=== PATIENT | female | born 1945 | race Caucasian/White ===

== ENCOUNTER 2025-10-24 10:15 | Outpatient (REF) | payer MEDICARE, SELFPAY ==
[2025-10-24 13:45] LABS: Hematocrit 36.6 % (37.0-47.0); Hemoglobin 11.3 g/dl (12.0-16.0); Imm Gran Abs Auto 0.32 X10*3/uL (0.00-0.03); Imm Gran Pct Auto 4.2 % (0.0-0.4); Lymphocytes Absolute Auto 0.4 X10*3/uL (1.2-4.9); MANUAL DIFF FLAG NO; Mean Corpuscular HGB Conc 30.9 g/dl (31.0-35.0); Mean Corpuscular Hemoglobin 31.2 pg (27.0-33.0); Mean Corpuscular Volume 101.1 fL (80.0-98.0); NRBC Abs Auto 0.000 X10*3/uL (0.0-0.012); NRBC Pct Auto 0.0 /100WBC (0.0-0.2); Platelet Count 275 X10*3/uL (160-400); Red Blood Count 3.62 X10*6/uL (4.20-5.50); White Blood Count 7.6 X10*3/uL (4.8-10.8)
--- OUTSIDE RECORDS SUMMARY | 2025-10-24 13:45 | XMS_ITS | Encounter Summary ---
Author Organization [facility] Address [address] [place] [address] Phone Care Team Providers Care Mud Tank Operator Name Role Phone Randal Perkins MD Primary Care Provider [phone] Encounter Details Date Type Department Care Team (Late st Contact Info) Description 02/19/2022 Telephone [facility] [address] [place] [phone] Marisel Richards MD Social History Tobacco Use Types Packs/Day Years Used Date Smoking Tobacco: Never Smokeless Tobacco: Never Alcohol Use Standard Drinks/Week Comments Yes 0 (1 standard drink = 0.6 oz pure alcohol) Alcoholic Drinks/day: Occasional social drink Comments Unknown Sex and Gender Information Value Date Recorded Sex Assigned at Not on file Legal Sex Female 5:16 PM EST Gender Identity Not on file Sexual Orientation Not on file COVID-19 Exposure Response Date Recorded In the last month, have you been in contact with someone who was confirmed or suspected to have Coronavirus / COVID-19? No / Unsure 02/12/2022 5:12 PM EDT documented as of this encounter Functional Status * Question Answer Date of Assessment Author BP 140/68 02/19/2022 4:11 PM EDT Mine Monzon RN Pulse 62 02/19/2022 4:11 PM EDT Mine Monzon RN SpO2 96 02/19/2022 4:11 PM EDT Hoy-K ennedy, Mine, RN * BP Location Answer Date of Assessment Author Left upper arm 02/19/2022 4:11 PM EDT Mine Hawk RN * Question Answer Date of Assessment Author BP 140/68 02/19/2022 4:11 PM EDT Mine Monzon RN * BP Location Answer Date of Assessment Author Left upper arm 02/19/2022 4:11 PM EDT Mine Hawk RN documented as of this encounter Miscellaneous Notes * Telephone Encounter - Shy Waters - 02/19/2022 11:09 AM EDT Pt called, she needs a refill for citric acid-potassium citrate. Please send to [facility] on [facility] Thank you documented in this encounter Plan of Treatment Not on file documented as of this encounter Visit Diagnoses Not on filedocumented in this encounter Care Teams Mud Tank Operator Relationship Specialty Start Date End Date Randal Perkins MD [address] [place], [place] PCP - General 12/09/20 documented as of this encounter
--- OUTSIDE RECORDS SUMMARY | 2025-10-24 13:45 | XMS_ITS | Encounter Summary ---
Author Organization [facility] Address [address] [place] [address] Phone Care Team Providers Care Senior Linux Engineer Name Role Phone Randal Perkins MD Primary Care Provider Encounter Details Date Type Department Care Team (Late st Contact Info) Description 08/16/2024 Telephone [facility] Crohns and Colitis [address] [place] [address] Crow Alberto MD 850 [facility] [address] [place] [address] [email or web address] Social History Tobacco Use Types Packs/Day Years Used Date Smoking Tobacco: Never Smokeless Tobacco: Never Alcohol Use Standard Drinks/Week Comments Yes 2 (1 standard drink = 0.6 oz pur e alcohol) per week Education Answer Date Recorded Are you interested in more education? Not on rose marie e 03/26/2023 Are you concerned about learning? Not on file 03/26/2023 No 03/26/2023 No 03/26/2023 Digital Access Answer Date Recorded No 04/20/2023 No 04/20/2023 No 04/20/2023 Reliable internet access at home? Not on file 04/20/2023 Device with a working camera? Not on file Intimate Partner Violence Answer Date R ecorded Are you denied basic needs s uch as food, clothing, or medical care? No 03/19/2023 In the past 12 months have y ou been in a relationship with a person who hurts, threatens, or tries to control you? No 03/19/2023 Are you denied basic needs s uch as food, clothing, or medical care? No 03/19/2023 In the past 12 months have y ou been in a relationship with a person who hurts, threatens, or tries to control you? No 03/19/2023 Comments Unknown Sex and Gender Information Value Date Recorded Sex Assigned at Female 06/24/2020 12:37 PM EDT Legal Sex Female 6:17 PM EST Gender Identity Female 06/24/2020 12:37 PM EDT Sexual Orientation Not on file Occupation Industry Job Start Date Job End Date Retired Not on file Not on file Not on file documented as of this encounter Plan of Treatment Not on file documented as of this encounter Visit Diagnoses Not on filedocumented in this encounter Additional Health Concerns Assessment Noted Time PHQ-2 Depression Total Score: 1 06/26/20 24 7:29 AM EDT documented as of this encounter Care Teams Senior Linux Engineer Relationship Specialty Start Date End Date Randal Perkins MD [facility] [place] [address] PCP - General 05/29/14 documented as of this encounter Additional Source Comments The information contained in this document represents components of the legal health record. It is not the complete legal health record.[facility]
--- OUTSIDE RECORDS SUMMARY | 2025-10-24 13:45 | XMS_ITS | Clinical Summary ---
Author Organization [facility] Address [address] [facility] [address] [place] [phone] Phone Care Team Providers Care Roll Setter Name Role Phone Benny Akbar MD Primary Care Provider Allergies Active Allergy Reactions Criticality Noted Date Comments Cefazolin Diarrhea 10/27/2018 Metronidazole Rash 12/08/2005 Medications metoprolol succinate (TOPROL-XL) 50 MG 24 hr tablet Take 25 mg by mouth 2 (two) times a day. Active levothyroxine (SYNTHROID, LEVOTHROID) 100 MCG tablet Take 200 mcg by mouth daily. Active cyanocobalamin (VITAMIN B-12) 1,000 mcg/mL injection Inject 1,000 mcg into the muscle every 30 (thirty) days. Active multivit/folic acid/vit K1 (ONE-A-DAY WOMEN'S 50 PLUS ORAL) Take 1 tablet by mouth daily. Active calcium citrate 250 mg calcium Tab Take 100 mg by mouth daily. 8 tabs daily Active estradioL (VAGIFEM) [address] 10 mcg vaginally 2 (two) times a week. Active epoetin crescencio (EPOGEN,PROCRIT) 2,000 unit/mL injection Inject 20 Units/kg under the skin 3 (three) times a week. weekly Active apixaban (ELIQUIS) 2.5 mg Take 2.5 mg by mouth 2 (two) times a day. 2 Active Saccharomyces boulardii (FLORASTOR) 250 mg capsule Take 250 mg by mouth daily. Active atorvastatin (LIPITOR) 20 MG tablet Take 20 mg by mouth daily. Active amiodarone (PACERONE) 200 MG tablet Take 200 mg by mouth daily. Active risankizumab-rzaa (SKYRIZI) 360 mg/2.4 mL (150 mg/mL) subcutaneous on body injectorIndicatio ns:Crohn's disease of both small and large intestine without complication Inject 2.4 mL (360 mg total) under the skin once every 6 weeks. 2.4 mL 5 4 Active cholestyramine (QUESTRAN) 4 gram packet Take 1 packet by mouth daily. Active pyridoxine, vitamin B6, (B-6) 100 MG tablet Take 100 mg by mouth daily. Active torsemide (DEMADEX) 10 MG tablet Take 10 mg by mouth daily. 1-2 tabs as needed Active diphenoxylate-atr opine (LOMOTIL) 2.5-0.025 mg per tablet Take 1 tablet by mouth 4 (four) times a day as needed for diarrhea. Takes TID Active BELATACEPT IV Inject into the vein. Every 2 weeks, then monthly Active predniSONE (DELTASONE) 5 MG tablet Take 5 mg by mouth daily with breakfast. Active atovaquone (MEPRON) 750 mg/5 mL suspension Take 750 mg by mouth daily. Active valGANciclovir (VALCYTE) 450 mg tablet Take 450 mg by mouth daily. Active metoprolol tartrate (LOPRESSOR) 100 MG tablet Take 100 mg by mouth daily. Active Active Problems Problem Noted Date Diagnosed Date Hypertension 08/24/2019 Crohn's disease 08/19/2012 Overview (01/19/2015): Crohn's disease Osteoporosis 01/07/2012 Overview (01/19/2015): Osteoporosis Encounters Date Type Department Care Team Description 10/11/2025 Orders Only [facility] Crohns and Colitis [address] [place] [address] Crow Rojas MD 09/30/2025 Orders Only [facility] [address] [facility] [place] [place] [address] Katty Alan FNP from Last 3 Months Immunizations Immunization Administration Dates Next Due Influenza Quadrivalent Preservative Free IM 08/29 Zoster recombinant 02/27/2019 Family History Medical History Relation Comments Cirrhosis Father Prostate cancer Father Lung cancer Mother Colon cancer Neg Hx Inflammatory bowel disease Neg Hx Relation Status Comments Father Mother Social History Tobacco Use Types Packs/Day Years [...] ecorded Are you denied basic needs s [facility] as food, clothing, or medical care? No [...] file Not on file Not on file Last Filed Vital Signs Vital Sign Reading Time Taken Comments Blood Pressure 177/83 04/19/2023 1:11 PM EDT Pulse 68 04/19/2023 1:11 PM EDT Temperature 36.5 C (97.7 F) 04/19/2023 1:11 PM EDT Respiratory Rate 18 03/19/2023 3:42 PM EDT Oxygen Saturation 98% 04/19/2023 1:11 PM EDT Inhaled Oxygen Concentration - - Weight 52.2 kg (115 lb) 06/19/2024 3:06 PM EDT Height 157.5 cm (5' 2 ) 06/19/2024 3:06 PM EDT Body Mass Index 21.03 06/19/2024 3:06 PM EDT Plan of Treatment Health Maintenance Due Date Last Done Comments LIPID PANEL 1945 TSH LEVEL 1945 COLOGUARD 1992 FIT TEST 1992 FOBT 1992 SIGMOIDOSCOPY 1992 VIRTUAL COLONOSCOPY 1992 OSTEOPOROSIS SCREENING INITIAL (ONE-TIME) 2012 COLONOSCOPY 01/26/2016 01/26/2014, 12/31, 05/28/2010, Additional history exists COLORECTAL CANCER SCREENING 01/26/2016 RSV VACCINE (1 - 1-dose 75+ series) 2022 BLOOD PRESSURE 10/20/2023 04/19/2023 INFLUENZA VACCINE (#1) 2025 , 08/27/2023, 09/11/2022, Additional history exists ALT LEVEL (ALANINE AMINOTRANSFERASE) 07/18/2025 07/18/2024, 06/06/2024, 05/25/2024, Additional history exists CREATININE LEVEL 07/18/2025 07/18/2024, 07/2024, 05/25/2024, Additional history exists COVID-19 VACCINE (2024- season) 2025 09/17/2023, 09/25/2022, 04/06/2022, Additional history exists DEPRESSION SCREENING 01/30/2026 01/30/2025 Adult Td,Tdap Booster 04/30/2032 04/30/2022, 013 HEPATITIS C SCREENING Completed 11/13/2015 ZOSTER VACCINES Completed 08/26/2019, 02/28, 02/27/2019 SMOKING STATUS SCREENING (Once After 26 Yrs) Completed 08/27/2022 PNEUMOCOCCAL VACCINES (50+ years) Completed 05/04/2023 HEPATITIS A VACCINES Aged Out No long er eligible based on patient's age to complete this topic HIB VACCINES Aged Out No longer eligi ble based on patient's age to complete this topic MENINGOCOCCAL VACCINES (ACWY) Aged Out No longer eligible based on patient's age to complete this topic MENINGOCOCCAL VACCINES (B) Aged Out N o longer eligible based on patient's age to complete this topic Medical Devices Not on file Procedures Procedure Name Priority Date/Time Associated Diagnosis Comments COMPREHENSIVE METABOLIC PANEL (CMP) Routine 07/18/2024 1:12 PM EDT Crohn's disease of both small and large intestine without complication Elevated C-reactive protein (CRP) HEPATITIS C ANTIBODY, QUALITATIVE Routine 11/13/2015 11:54 AM EST Crohn's disease, without complications ENDOSCOPY, COLON 01/26/2014 10:2 1 AM EST from Last 3 Months or Most Recently Relevant to Health Maintenance Results * (ABNORMAL) Comprehensive metabolic panel (07/18/2024 1:12 PM EDT) SODIUM 139 133 - 146 mmol/L [facility] POTASSIUM 4.4 3.3 - 5.1 mmol/L [facility] CHLORIDE 96 96 - 108 mmol/L [facility] CO2 22 21 - 35 mmol/L [facility] BUN 54(H) 6 - 19 mg/dL [facility] CREATININE 4.90(H) 0.5 - 1.5 mg/dL [facility] GLUCOSE 103(H) 70 - 99 mg/dL [facility] ALBUMIN 2.7(L) 3.9 - 4.8 g/dL [facility] TOTAL PROTEIN 5.3(L) 6.5 - 8.0 g/dL [facility] CALCIUM 7.4(L) 8.4 - 10.3 mg/dL [facility] ALKALINE PHOSPHATASE 236(H) 39 - 117 U/L [facility] TOTAL BILIRUBIN 0.4 0.0 - 1.2 mg/dL [facility] AST 24 0 - 37 U/L [facility] ALT 19 0 - 40 U/L [facility] GLOBULIN 2.6 1 - 4.8 g/dL [facility] EGFR 9(L) >59 mL/min/1.7 3m2 [facility] Comment:Estimated glomerular filtration rate calculated using the CKD-EPI refit equation. ANION GAP 25(H) 10 - 20 mmol/L [facility] Blood 07/18/2024 1:12 PM EDT 07/18/2024 1:23 PM EDT María Aguayo [facility] LAB BLOOD BKR ORDERABLES Final Result [facility] [address] [place] [address] * Hepatitis C antibody, qualitative ([facility], F, [facility], [facility] Only) (11/13/2015 11:54 AM EST) HCV Negative Negative [facility] 11/13/2015 11:5 4 AM EST 11/13/2015 12:03 PM EST Crow Rojas MD LAB BLOOD BKR ORDERABLES Fi nal Result [facility] [address] [place] [address] * ENDOSCOPY, COLON (01/26/2014 10:21 AM EST) 01/26/2014 10:2 1 AM EST Narrative 02/25/2014 11:31 AM EDT Report Number: [id number] Report Status: Signed Type: Colonoscopy Date: 01/26/2014 10:21 850 Gastroenterology Patient Name: Carline Lee Procedure Date: 01/26/2014 10:21 AM Date of : 1945 Age: 68 Room: 12 Gender: Female Note Status: Finalized Attending MD: CROW ROJAS MD Procedure: Colonoscopy Indications: Personal history of Crohn's disease Providers: CROW ROJAS MD, Olivier Hernandez, FELICITA Referring MD: BENNY AKBAR MD (Referring MD) Requesting Provider: BENNY AKBAR MD Medicines: Midazolam 4 mg IV, Fentanyl 100 micrograms IV Complications: No immediate complications. Procedure: Pre-Anesthesia Assessment: - Prior to the procedure, a History and Physical was performed, and patient medications, allergies and sensitivities were reviewed. The patient's tolerance of previous anesthesia was reviewed. - The risks and benefits of the procedure and the sedation options and risks were discussed with the patient. All questions were answered and informed consent was obtained. - Patient identification and proposed procedure were verified prior to the procedure by the physician and the nurse. The procedure was verified in the pre-procedure area in the procedure room. - Pre-procedure physical examination revealed no contraindications to sedation. - ASA Grade Assessment: II - A patient with mild systemic disease. - After reviewing the risks and benefits, the patient was deemed in satisfactory condition to undergo the procedure. - The anesthesia plan was to use moderate sedation/analgesia (conscious sedation). - Immediately prior to administration of medications, the patient was re-assessed for adequacy to receive sedatives. - Sedation was administered by an endoscopy nurse. The sedation level attained was moderate. - The heart rate, respiratory rate, oxygen saturations, blood pressure, adequacy of pulmonary ventilation, and response to care were monitored throughout the procedure. - The physical status of the patient was re-assessed after the procedure. After informed consent was obtained, the scope was passed under direct vision. Throughout the procedure, the patient's blood pressure, pulse, and oxygen saturations were monitored continuously. The Colonoscope was introduced through the anus and advanced to 10 cm into the ileum. The colonoscopy was performed without difficulty. The patient tolerated the procedure well. The quality of the bowel preparation was good. Findings: The terminal ileum contained a benign-appearing, intrinsic moderate to severe stenosis that was non-traversed. Biopsies were taken with a cold forceps for histology. The colon (entire examined portion) appeared normal. Active inflammation in the ileum sustpected The retroflexed view of the distal rectum and anal verge was normal and showed no anal or rectal abnormalities. Impression: - Stricture in the terminal ileum. Biopsied. - The entire examined colon is normal. - The distal rectum and anal verge are normal on retroflexion view. Recommendation: Discuss additional therapy- ? MRE and ? dilation Crow ROJAS MD 02/25/2014 11:30 AM Number of Addenda: 0 Note Initiated On: 01/26/2014 10:21 AM Procedure Note Crow Rojas MD - 01/26/2014 10:21 AM EST Report Number: [id number] Report Status:Signed Type: Colonoscopy Date: 01/26/2014 10:21 850 Gastroenterology Patient Name: Carline Lee Procedure Date: 01/26/2014 10:21 AM Date of : 1945 Age: 68 Room: 12 Gender: Female Note Status: Finalized Attending MD: RCOW ROJAS MD Procedure: Colonoscopy Indications: Personal history of Crohn's disease Providers: CROW ROJAS MD, Olivier Hernandez RN Referring MD: BENNY AKBAR MD (Referring MD) Requesting Provider: BENNY AKBAR MD Medicines: Midazolam 4 mg IV, Fentanyl 100 micrograms IV Complications: No immediate complications. Procedure: Pre-Anesthesia Assessment: - Prior to the procedure, a History and Physical was performed, and patient medications, allergies and sensitivities were reviewed. The patient's tolerance of previous anesthesia was reviewed. - The risks and benefits of the procedure and the sedation options and risks were discussed with the patient. All questions were answered and informed consent was obtained. - Patient identification and proposed procedure were verified prior to the procedure by the physician and the nurse. The procedure was verified in the pre-procedure area in the procedure room. - Pre-procedure physical examination revealed no contraindications to sedation. - ASA Grade Assessment: II - A patient with mild systemic disease. - After reviewing the risks and benefits, the patient was deemed in satisfactory condition to undergo the procedure. - The anesthesia plan was to use moderate sedation/analgesia (conscious sedation). - Immediately prior to administration of medications, the patient was re-assessed for adequacy to receive sedatives. - Sedation was administered by an endoscopy nurse. The sedation level attained was moderate. - The heart rate, respiratory rate, oxygen saturations, blood pressure, adequacy of pulmonary ventilation, and response to care were monitored throughout the procedure. - The physical status of the patient was re-assessed after the procedure. After informed consent was obtained, the scope was passed under direct vision. Throughout the procedure, the patient's blood pressure, pulse, and oxygen saturations were monitored continuously. The Colonoscope was introduced through the anus and advanced to 10 cm into the ileum. The colonoscopy was performed without difficulty. The patient tolerated the procedure well. The quality of the bowel preparation was good. Findings: The terminal ileum contained a benign-appearing, intrinsic moderate to severe stenosis that was non-traversed. Biopsies were taken with a cold forceps for histology. The colon (entire examined portion) appeared normal. Active inflammation in the ileum sustpected The retroflexed view of the distal rectum and anal verge was normal and showed no anal or rectal abnormalities. Impression: - Stricture in the terminal ileum. Biopsied. - The entire examined colon is normal. - The distal rectum and anal verge are normal on retroflexion view. Recommendation: Discuss additional therapy- ? MRE and ? dilation Crow ROJAS MD 02/25/2014 11:30 AM Number of Addenda: 0 Note Initiated On: 01/26/2014 10:21 AM us Conversion Provider Not In Sys GI PROCEDURE ORDE MINNA Final Result from Last 3 Months or Most Recently Relevant to Health Maintenance Insurance [facility] MEDICARE REPLACEMENT [facility] MEDICARE REPLACEMENT [facility] MEDICARE REPLACEMENT [facility] MEDICARE REPLACEMENT [facility] MEDICARE REPLACEMENT [place] [id number] [facility] MEDICARE REPLACEMENT [place] [id number] [facility] MEDICARE REPLACEMENT [facility] MEDICARE REPLACEMENT [place] [id number] [facility] MEDICARE REPLACEMENT [place] [id number] Care Teams Roll Setter Relationship Specialty Start Date End Date Benny Akbar MD [facility] [address] PCP - General 05/29/14 Additional Source Comments The information contained in this document represents components of the legal health record. It is not the complete legal health record.[facility]
--- OUTSIDE RECORDS SUMMARY | 2025-10-24 13:45 | XMS_ITS | Encounter Summary ---
Author Organization [facility] Address [address] [place] [address] Drive [address] [place] [address] Phone Care Team Providers Care Sort Supervisor Name Role Phone Randal Perkins MD Primary Care Provider Encounter Details Date Type Department Care Team (Late st Contact Info) Description 01/21/2022 Procedure Pass [facility] [address] [place] [address] Social History Tobacco Use Types Packs/Day Years Used Date Smoking Tobacco: Never Smokeless Tobacco: Never Alcohol Use Standard Drinks/Week Comments Yes 2 (1 standard drink = 0.6 oz pur e alcohol) per week Comments Unknown Sex and Gender Information Value [...] filedocumented in this encounter Additional Health Concerns Infection Onset Date Last Indicated Resolved Time CDiff-Risk 05/24/2024 05/25/2024 05/25/2024 12:4 2 PM EDT Assessment Noted Time PHQ-2 Depression Total Score: 0 11/02/20 21 3:22 PM EST documented as of this encounter Care Teams Sort Supervisor Relationship Specialty Start Date End Date Randal Perkins MD [address] [address] PCP - General 05/29/14 documented as of this encounter Additional Source Comments The information contained in this document represents components of the legal health record. It is not the complete legal health record.[facility]
--- OUTSIDE RECORDS SUMMARY | 2025-10-24 13:45 | XMS_ITS | Encounter Summary ---
Author Organization [facility] Address [address] [place] [address] Phone Care Team Providers Care A And P Technician Name Role Phone Randal Perkins MD Primary Care Provider Encounter Details Date Type Department Care Team (Late st Contact Info) Description 08/13/2023 Telephone [facility] Crohns and Colitis [address] [place] [address] Crow Alberto MD 850 [facility] [address] [place] [phone] [email or web address] Social History Tobacco Use Types Packs/Day Years [...] Noted Time PHQ-2 Depression Total Score: 0 07/16/20 23 10:55 AM EDT documented as of this encounter Care Teams A And P Technician Relationship Specialty Start Date End Date Randal Perkins MD [facility] [address] PCP - General 05/29/14 documented as of this encounter Additional Source Comments The information contained in this document represents components of the legal health record. It is not the complete legal health record.[facility]
--- OUTSIDE RECORDS SUMMARY | 2025-10-24 13:46 | XMS_ITS | Encounter Summary ---
Author Organization [facility] [facility] Address [address] [place] [address] Phone Care Team Providers Care Clinical Pharmacy Coordinator Name Role Phone Randal Perkins MD Primary Care Provider Encounter Details Date Type Department Care Team (Late st Contact Info) Description 05/10/2024 Telephone [facility] Crohns and Colitis [address] [place] [address] Crow Alberto MD 850 [facility] [address] [place] [address] [email or web address] Social History Tobacco Use Types Packs/Day Years [...] Noted Time PHQ-2 Depression Total Score: 0 11/06/20 23 8:04 AM EST documented as of this encounter Care Teams Clinical Pharmacy Coordinator Relationship Specialty Start Date End Date Randal Perkins MD [facility] [address] PCP - General 05/29/14 documented as of this encounter Additional Source Comments The information contained in this document represents components of the legal health record. It is not the complete legal health record.[facility]
--- OUTSIDE RECORDS SUMMARY | 2025-10-24 13:46 | XMS_ITS | Clinical Summary ---
Author Organization [address] [place] [address] [place] [phone] Phone Care Team Providers Care Senior Physician Name Role Phone Randal Perkins MD Primary Care Provider [phone] Allergies Active Allergy Reactions Criticality Noted Date Comments Cephalexin Diarrhea,Other 03/19/2021 Metronidazole Other,Rash,Unknown 12/08/2005 Other Reaction(s): Rash/Dermatitis Sulfamethoxazole-Trimetho prim 09/25/2025 Other Reaction(s): WBC count problem Valganciclovir 09/25/2025 Other Reaction(s): WBC count issue Medications metoprolol succinate (TOPROL-XL) 100 mg 24 hr tablet TAKE 1 TABLET BY MOUTH EVERY DAY 90 tablet 3 5 Active Eliquis 2.5 mg tablet Take 1 tablet (2.5 mg total) by mouth 2 (two) times a day. Active belatacept (Nulojix) 250 mg recon soln Infuse 5mg/kg q 28 days ; Pt weight as of 07/05/25 53kg 5 Active calcium carbonate (OS-BEKAH) 1250 mg (500 mg elemental calcium) chewable tablet CHEW 2 TABLETS 3 TIMES DAILY 5 Active Cholestyramine Light 4 gram packet TAKE 1 PACKET (4 G TOTAL) BY MOUTH IN THE MORNING AND 1 PACKET (4 G TOTAL) IN THE EVENING. Active docusate sodium (COLACE) 100 mg capsule Take 1 capsule (100 mg total) by mouth 1 (one) time each day. 4 Active hydroCHLOROthi azide (HYDRODIURIL) 25 mg tablet Take 1 tablet (25 mg total) by mouth 1 (one) time each day. 5 07/17/20 26 Active amoxicillin (AMOXIL) 500 mg capsule Take by mouth. Acti ve predniSONE (DELTASONE) 5 mg tablet Take 1 tablet (5 mg total) by mouth 1 (one) time each day. Active torsemide (DEMADEX) 5 mg tablet Take 1 tablet (5 mg total) by mouth 1 (one) time each day. Active vitamin A 3,000 mcg (10,000 unit) capsule Take 1 capsule (10,000 Units total) by mouth 1 (one) time each day. Active levothyroxine (SYNTHROID, LEVOTHROID) 200 mcg tablet Take 1 tablet (200 mcg total) by mouth 1 (one) time each day before breakfast. Active levothyroxine (SYNTHROID, LEVOTHROID) 50 mcg tablet Take 1 tablet (50 mcg total) by mouth every other day. Active cholecalcifero l (VITAMIN D-3) 1,250 mcg (50,000 unit) capsule Take 1 capsule (50,000 Units total) by mouth 1 (one) time per week. Active fluticasone propionate (FLONASE) 50 mcg/actuation nasal spray Administer 1 spray into each nostril 1 (one) time each day. Shake gently. Before first use, prime pump. After use, clean tip and replace cap. Active levothyroxine (SYNTHROID, LEVOTHROID) 50 mcg tablet Take 1 tablet (50 mcg total) by mouth 1 (one) time each day before breakfast. 09/25/20 25 Discontinu ed(Formula ry change) Active Problems Problem Noted Date Diagnosed Date SOB (shortness of breath) 09/25/2025 Assessment & Plan (09/25/2025 3:30 PM EDT): This appears to be multifactorial, definitely component of this is deconditioning, could be slight fluid overload. Patient feels much better since she was discharged has lost about 2 pounds of fluid, she is back on her regular dose of the torsemide 5 mg p.o. daily. I am going to look into ordering cardiac rehab for her at her request. Factor V deficiency (CMS/HCC V24, CMS/HCC V28) 1 HFrEF (heart failure with re duced ejection fraction) ([facility] V24, CMS/[facility] V28) 09/25/2025 Overview (09/25/2025): echocardiogram on 06/26/2025 that revealed left ventricle cavity is mildly dilated. Mild concentric left ventricular hypertrophy. There is mild global LV systolic dysfunction with an ejection fraction of 45-50%. Mitral valve leaflets are mildly thickened and apically tented. There is moderate mitral regurgitation. There is systolic flow reversal in 1 pulmonary vein visualized indicating possibly more severe degree of mitral regurgitation. There is no mitral stenosis. There is grade 3 diastolic dysfunction. Consistent with elevated left atrial pressures. RV systolic pressure is 43 mmHg. Compared to prior echo in 01/2024 there is no significant difference Assessment & Plan (09/25/2025 3:29 PM EDT): Utilizing metoprolol succinate 100 mg p.o. daily in addition to torsemide 5 mg p.o. daily. We are limited in GDMT secondary to kidney disease. Patient is going to be scheduled with her software engineering supervisor to have a kidney biopsy in which case afterward they are considering initiating an SCOTT or ARB which would be beneficial for the patient's heart failure. Entresto would be the best for her heart failure if she was able to tolerate that. I would like her to continue to check her weights daily, reach out if she gains more than 2 pounds in a day or 4 pounds in a week. She should limit sodium consumption to 2000 mg p.o. daily. She reports that she is down about 2 pounds since she was discharged from the hospital and feels much better. She also is inquiring about cardiac rehab I will look into that today. Renal transplant recipient 09/25/2025 Hyperthyroidism 09/25/2025 Paroxysmal atrial fibrillation ([facility] V24, [facility] V28) 09/25/2025 Overview (09/25/2025): s/p ablation with Dr Mendosa in February 2024, and cardioversion. Complicated by pericarditis-since resolved. Assessment & Plan (09/25/2025 3:27 PM EDT): Utilizing reduced dose Eliquis, she had significant bleeding when she was on the regular dose of Eliquis, she also has history of factor V Leiden disease. Should continue on the Eliquis for CVA prophylaxis. Patient likely has not been in atrial fibrillation since her ablation and cardioversion. She has subjective awareness of her A-fib. Utilizing metoprolol for rate control. Should remain anticoagulated due to elevated CHADS2 VASc score Primary hypertension 09/25/2025 Assessment & Plan (09/25/2025 3:31 PM EDT): She has noticed elevated blood pressures over the past couple weeks however it has been better controlled recently. We did discuss switching from the metoprolol to carvedilol which would give her better blood pressure control, however she has subjective awareness of her heart rate when it starts to go above 90 bpm. For now we are going to stay on the metoprolol, patient does have plan for kidney biopsy and potential to go back on SCOTT ARB or Arni depending on those results which would also help her blood pressure and heart failure. Encounters Date Type Department Care Team Description 09/25/2025 1:40 PM EDT Office Visit [facility] Cardiology [facility] [address] [facility] [address] [place] [address] Michele Malagon NP Renal transplant recipient (Primary Dx); SOB (shortness of breath); HFrEF (heart failure with reduced ejection fraction) (CMS/HCC V24, CMS/HCC V28); Paroxysmal atrial fibrillation (CMS/HCC V24, CMS/HCC V28); Primary hypertension 09/25/2025 Telephone [facility] Cardiology [facility] [address] [facility] [address] [place] [address] Michele Malagon NP 09/20/2025 Telephone [facility] Cardiology [facility] [address] [facility] [address] [place] [address] Kamille Shetty MD from Last 3 Months Immunizations Immunization Administration Dates Next Due Pfizer SARS-CoV-2 COVID-19, mRNA, LNP-S, preservative free 08/19/2021,01/20/2021,12/30/2020 Surgical History Surgery Date Site/Laterality Comments SECTION PROCEDURE: HISTORICAL DELIVERY CHOLECYSTECTOMY PROCEDURE: HISTORICAL CHOLECYSTECTOMY OTHER SURGICAL HISTORY 12/07/2016 PROCEDURE: HISTORICAL SUBTOTAL THYROIDECTOMY COLONOSCOPY PROCEDURE: HISTORICAL COLONOSCOPY; COMMENT: 10/14/12, 05/28/10, 07/31/02 Medical History Medical History Date Comments JUAN JOSE (acute kidney injury) (CMS/HCC V24) DX:JUAN JOSE (acute kidney injury) (HCC) Breast cancer (CMS/HCC V24, CMS/HCC V28) DX:Breast cancer (HCC) H/O section DX:H/O cesa rean section Chronic renal impairment 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 Crohn's disease (CMS/HCC V24, CMS/HCC V28) DX:Crohn's disease (HCC) Factor V deficiency (CMS/HCC V24, CMS/HCC V28) DX:Factor V deficiency (HCC) Multiple thyroid nodules DX:Mult iple thyroid nodules Osteoporosis DX:Osteoporosis Steatosis of liver DX:Steatosis of liver Cystitis DX:Cystitis Vitamin B12 deficiency DX:Vitami n B12 deficiency Anemia DX:Anemia Hypothyroidism DX:Hypothyroidis m Erythema nodosum DX:Erythema nod osum Recurrent cystitis DX:Recurrent cystitis Nephrolithiasis DX:Nephrolithias is; COMMENT: DAMAGED LEFT KIDNEY CALCIUM OXALATE STONE Hypertension Family History Medical History Relation Name Comments Cirrhosis Father Lung cancer Mother Other: pulmonary embolism Son Relation Name Status Comments Father Mother Son Alive Social History Tobacco Use Types Packs/Day Years Used Date Smoking Tobacco: Never Alcohol Use Standard Drinks/Week Comments Never 0 (1 standard drink = 0.6 oz pur e alcohol) Comments Unknown Sex and Gender Information Value Date Recorded Sex Assigned at Not on file Legal Sex Female 7:08 PM EST Gender Identity Not on file Sexual Orientation Not on file Obstetrics History Last Filed Vital Signs Vital Sign Reading Time Taken Comments Blood Pressure 140/60 09/25/2025 1:24 PM EDT Pulse 80 09/25/2025 1:24 PM EDT Temperature - - Respiratory Rate - - Oxygen Saturation 97% 09/25/2025 1:24 PM EDT Inhaled Oxygen Concentration - - Weight 53.5 kg (118 lb) 09/25/2025 1:24 PM EDT Height 157.5 cm (5' 2 ) 09/25/2025 1:24 PM EDT Body Mass Index 21.58 09/25/2025 1:24 PM EDT Plan of Treatment Health Maintenance Due Date Last Done Comments Diabetes: Annual Foot Exam 1957 Diabetes: Annual Retina Eye Exam 1955 Hepatitis A Vaccines (1 of 2 - Risk 2-dose series) 1966 Hepatitis B Vaccines (1 of 3 - Risk 3-dose series) 2007 RSV Immunization Adult Patients (1 - 1-dose 75+ series) 2022 Falls Risk Assessment 11/08/2022 Medicare Annual Wellness Visit 11/08/2022 Osteoporosis Screening (Bone Density Screening) 11/08/2022 Social Influencers of Health Screening 11/08/2022 Depression Screening 11/29/2024 Diabetes: Annual GFR (Glomerular Filtration Rate) 07/18/2025 07/18/2024, 06/06/2024, 05/25/2024, Additional history exists Hypertension/CHF/CAD Annual BMP Blood Test 07/18/2025 07/18/2024, 06/06/2024, 05/25/2024, Additional history exists COVID-19 Vaccine (2024- season) 2025 09/17/2023, 09/25/2022, 04/06/2022, Additional history exists Diabetes: Blood Sugar Control Test (HGBA1C) 03/14/2026 09/13/2025, 09/13/2025, 08/10/2025, Additional history exists Diabetes: Annual Urine Albumin-Creatinine Ratio (uACR) 09/13/2026 09/13/2025, 08/10/2025, 06/05/2025, Additional history exists Cholesterol Screening (Lipid Panel) 09/13/2030 09/13/2025, 04/20/2025 DTaP,Tdap,and Td Vaccines (4 - Td or Tdap) 04/30/2032 04/30/2022, 04/18/2013, 03/29/2005 Hepatitis C Screening Completed 11/13/2015 Zoster Vaccines Completed 08/26/2019, 02/28, 02/27/2019, Additional history exists Pneumococcal Vaccine: 50+ Years Completed 05/04/2023, 07/12/2015, 05/29/2015, Additional history exists Influenza Vaccine Completed 09/19/2025, , 08/27/2023, Additional history exists HIB Vaccines Aged Out No longer eligi ble based on patient's age to complete this topic HPV Vaccines Aged Out No longer eligi ble based on patient's age to complete this topic IPV Vaccines Aged Out No longer eligi ble based on patient's age to complete this topic MMR Vaccines Aged Out No longer eligi ble based on patient's age to complete this topic Meningococcal ACWY Vaccine Aged Out N o longer eligible based on patient's age to complete this topic Meningococcal B Vaccine Aged Out No l onger eligible based on patient's age to complete this topic RSV Immunization Patients Under 20 months Aged Out No longer eligible based on patient's age to complete this topic Varicella Vaccines Aged Out No longer eligible based on patient's age to complete this topic Insurance [employer] MEDICARE Care Teams Senior Physician Relationship Specialty Start Date End Date Randal Perkins MD [facility] [place] [address] PCP - General Internal Medicine 07/07/22
--- OUTSIDE RECORDS SUMMARY | 2025-10-24 13:46 | XMS_ITS | Encounter Summary ---
Author Organization [employer] [facility] Address [address] [place] [address] Phone Care Team Providers Care Sprayer Machine Name Role Phone Randal Perkins MD Primary Care Provider Encounter Details Date Type Department Care Team (Late st Contact Info) Description 05/26/2024 Procedure Pass [facility] [address] [place] [address] Social History Tobacco Use Types Packs/Day Years [...] Noted Time PHQ-2 Depression Total Score: 1 05/20/20 24 3:34 PM EDT documented as of this encounter Care Teams Sprayer Machine Relationship Specialty Start Date End Date Randal Perkins MD [address] [address] PCP - General 05/29/14 documented as of this encounter Additional Source Comments The information contained in this document represents components of the legal health record. It is not the complete legal health record.[facility]
--- OUTSIDE RECORDS SUMMARY | 2025-10-24 13:46 | XMS_ITS | Encounter Summary ---
Author Organization [facility] Address [address] [place] [address] Phone Care Team Providers Care Junior Accountant Bookkeeper Name Role Phone Randal Perkins MD Primary Care Provider Encounter Details Date Type Department Care Team (Late st Contact Info) Description 09/18/2020 Procedure Pass [facility] [address] [place] [address] Social History Tobacco Use Types Packs/Day Years [...] 05/24/2024 05/25/2024 05/25/2024 12:4 2 PM EDT documented as of this encounter Care Teams Junior Accountant Bookkeeper Relationship Specialty Start Date End Date Randal Perkins MD [address] [address] PCP - General 05/29/14 documented as of this encounter Additional Source Comments The information contained in this document represents components of the legal health record. It is not the complete legal health record.[facility]
--- OUTSIDE RECORDS SUMMARY | 2025-10-24 13:46 | XMS_ITS | Encounter Summary ---
Author Organization [facility] Address [address] [place] [address] Phone Care Team Providers Care Wall Attendant Name Role Phone Randal Perkins MD Primary Care Provider Encounter Details Date Type Department Care Team (Late st Contact Info) Description 05/12/2024 Telephone [facility] Crohns and Colitis [address] [place] [address] Crow Alberto MD [address] [facility] [address] [place] [phone] [email or web address] Social History Tobacco Use Types Packs/Day [...] documented as of this encounter Care Teams Wall Attendant Relationship Specialty Start Date End Date Randal Perkins MD [facility] [address] PCP - General 05/29/14 documented as of this encounter Additional Source Comments The information contained in this document represents components of the legal health record. It is not the complete legal health record.[facility]
--- OUTSIDE RECORDS SUMMARY | 2025-10-24 13:46 | XMS_ITS | Encounter Summary ---
Author Organization [facility], Address [address] [place] [address] Phone Care Team Providers Care Tank Furnace Operator Name Role Phone Randal Perkins MD Primary Care Provider [phone] Encounter Details Date Type Department Care Team (Late st Contact Info) Description 07/12/2025 Documentation Only [facility], [address] [place] [address] Bonnie Ojeda [address] [place] [address] Social History Tobacco Use Types Packs/Day Years Used Date Smoking Tobacco: Never Smokeless Tobacco: Never Alcohol Use Standard Drinks/Week Comments Not Currently 0 (1 standard drink = 0.6 oz pure alcohol) Alcoholic Drinks/day: Occasional social drink Comments Unknown Sex and Gender Information Value Date Recorded Sex Assigned at Not on file Legal Sex Female 5:16 PM EST Gender Identity Not on file Sexual Orientation Not on file documented as of this encounter Plan of Treatment Not on file documented as of this encounter Visit Diagnoses Not on filedocumented in this encounter Care Teams Tank Furnace Operator Relationship Specialty Start Date End Date Randal Perkins MD [address] [facility] MEDIC[facility] [place], [place] PCP - General 12/09/20 documented as of this encounter
--- OUTSIDE RECORDS SUMMARY | 2025-10-24 13:46 | XMS_ITS | Encounter Summary ---
Author Organization [facility] Address [address] [place] [address] Phone Care Team Providers Care Transport Engineer Name Role Phone Randal Perkins MD Primary Care Provider [phone] Reason for Visit * Reason Comments Med Refill Encounter Details Date Type Department Care Team (Late st Contact Info) Description 03/25/2023 Refill [facility] [address] [place] [phone] Garo Bautista MD [address] [place] [address] Social History Tobacco Use Types Packs/Day Years [...] on filedocumented in this encounter Care Teams Transport Engineer Relationship Specialty Start Date End Date Randal Perkins MD [address] [facility] [place], [place] PCP - General 12/09/20 documented as of this encounter
--- OUTSIDE RECORDS SUMMARY | 2025-10-24 13:46 | XMS_ITS | Encounter Summary ---
Author Organization [employer] [facility] Address [address] [place] [address] Phone Care Team Providers Care Enterprise Applications Manager Name Role Phone Randal Perkins MD Primary Care Provider Encounter Details Date Type Department Care Team (Late st Contact Info) Description 07/14/2024 Telephone [facility] Crohns and Colitis [address] [place] [address] Crow Alberto MD [address] [facility] [address] [place] [address] [email or web address] Social History Tobacco Use Types Packs/Day Years [...] documented as of this encounter Care Teams Enterprise Applications Manager Relationship Specialty Start Date End Date Randal Perkins MD [facility] [place] [address] PCP - General 05/29/14 documented as of this encounter Additional Source Comments The information contained in this document represents components of the legal health record. It is not the complete legal health record.[facility]
--- OUTSIDE RECORDS SUMMARY | 2025-10-24 13:46 | XMS_ITS | Encounter Summary ---
Author Organization [facility], Address [address] [place] [address] Phone Care Team Providers Care Computer Lab Assistant Name Role Phone Randal Perkins MD Primary Care Provider [phone] Encounter Details Date Type Department Care Team (Late st Contact Info) Description 07/28/2025 Orders Only [facility], [address] [place] [phone] Sonido Davila MD [address] [facility] [address] [place] [phone] Social History Tobacco Use Types Packs/Day Years [...] on filedocumented in this encounter Care Teams Computer Lab Assistant Relationship Specialty Start Date End Date Randal Perkins MD [address] [facility] MEDICINE [place], [place] PCP - General 12/09/20 documented as of this encounter
--- OUTSIDE RECORDS SUMMARY | 2025-10-24 13:46 | XMS_ITS | Encounter Summary ---
Author Organization [facility] Address [address] [place] [address] Phone Care Team Providers Care Manager Track Name Role Phone Randal Perkins MD Primary Care Provider [phone] Reason for Visit * Reason Comments Med Refill Encounter Details Date Type Department Care Team (Late st Contact Info) Description 04/10/2023 Refill [facility] [address] [place] [phone] Garo Bautista MD [address] [place] [address] Social History Tobacco Use Types Packs/Day Years [...] on filedocumented in this encounter Care Teams Manager Track Relationship Specialty Start Date End Date Randal Perkins MD [address] [facility] MEDICINE [place], [place] PCP - General 12/09/20 documented as of this encounter
--- OUTSIDE RECORDS SUMMARY | 2025-10-24 13:47 | XMS_ITS | Encounter Summary ---
Author Organization [facility] Address [address] [place] [address] [address] [place] [address] Phone Care Team Providers Care Nutrition Partner Name Role Phone Randal Perkins MD Primary Care Provider Encounter Details Date Type Department Care Team (Late st Contact Info) Description 06/10/2022 Procedure Pass [facility] [address] [place] [address] Social History Tobacco Use Types Packs/Day Years [...] documented as of this encounter Care Teams Nutrition Partner Relationship Specialty Start Date End Date Randal Perkins MD [address] [address] PCP - General 05/29/14 documented as of this encounter Additional Source Comments The information contained in this document represents components of the legal health record. It is not the complete legal health record.[facility]
--- OUTSIDE RECORDS SUMMARY | 2025-10-24 13:47 | XMS_ITS | Encounter Summary ---
Author Organization [facility] Address [address] [place] [address] Phone Care Team Providers Care Editorial Clerk Name Role Phone Randal Perkins MD Primary Care Provider [phone] Encounter Details Date Type Department Care Team (Late st Contact Info) Description 03/19/2021 Orders Only [facility] [address] [place] [phone] Provider, MD Vikas Social History Tobacco Use Types Packs/Day Years [...] have Coronavirus / COVID-19? No / Unsure 03/19/2021 1:20 PM EDT documented as of this encounter Functional Status * Question Answer Date of Assessment Author BP 148/70 03/19/2021 1:31 PM EDT Shikha Candelaria MA Pulse 69 03/19/2021 1:31 PM EDT Shikha Candelaria MA SpO2 98 03/19/2021 1:31 PM EDT Shikha Candelaria MA Height 63 03/19/2021 1:31 PM EDT Shikha Candelaria MA Weight 211103/19/2021 1:31 PM EDT Shikha Candelaria MA * BMI (Calculated) Answer Date of Assessment Author 23.4 03/19/2021 1:31 PM EDT César Candelaria MA * BP Location Answer Date of Assessment Author Left upper arm 03/19/2021 1:31 PM EDT César Candelaria MA * Question Answer Date of Assessment Author BP 148/70 03/19/2021 1:31 PM EDT Shikha Candelaria MA Height 63 03/19/2021 1:31 PM EDT Shikha Candelaria MA Weight 211103/19/2021 1:31 PM EDT Shikha Candelaria MA * BMI (Calculated) Answer Date of Assessment Author 23.4 03/19/2021 1:31 PM EDT César Candelaria MA * BP Location Answer Date of Assessment Author Left upper arm 03/19/2021 1:31 PM EDT César Candelaria MA documented as of this encounter Plan of Treatment Not on file documented as of this encounter Procedures Procedure Name Priority Date/Time Associated Diagnosis Comments EXT RESULT ENTRY Routine 02/19/2021 documented in this encounter Results * EXT RESULT ENTRY (02/19/2021) us Historical Provider LAB BLOOD ORDERABLES Veronica l Result documented in this encounter Visit Diagnoses Not on filedocumented in this encounter Care Teams Editorial Clerk Relationship Specialty Start Date End Date Randal Perkins MD [address] [place] [address] PCP - General 12/09/20 documented as of this encounter
--- OUTSIDE RECORDS SUMMARY | 2025-10-24 13:47 | XMS_ITS | Encounter Summary ---
Author Organization [facility] Address [address] [place] [address] Phone Care Team Providers Care Metal Roofing Mechanic Name Role Phone Randal Perkins MD Primary Care Provider + [phone] Encounter Details Date Type Department Care Team (Late st Contact Info) Description 04/02/2021 Orders Only [facility] [address] [place] [phone] Marisel Richards MD Stage 3a chronic kidney disease (HCC); Renal stone; Stenosis of left renal artery (HCC); Hypokalemia with normal acid-base balance; Hypertension; Crohn's disease of small intestine without complication, not otherwise specified (HCC) Social History Tobacco Use Types Packs/Day Years [...] PM EDT documented as of this encounter Plan of Treatment Not on file documented as of this encounter Procedures Procedure Name Priority Date/Time Associated Diagnosis Comments US RETROPERITONEUM KIDNEY VESSELS Routine 07/07/2021 2:34 PM EDT Stage 3a chronic kidney disease (HCC) Renal stone Stenosis of left renal artery (HCC) Hypokalemia with normal acid-base balance Hypertension Crohn's disease of small intestine without complication, not otherwise specified (HCC) documented in this encounter Results * Renal Artery Duplex (07/07/2021 2:34 PM EDT) Anatomical Region Laterality Modality Body Ultrasound us Marisel Richards MD [facility]EDURES Final Result documented in this encounter Visit Diagnoses Diagnosis Stage 3a chronic kidney disease (HCC) Renal stone Stenosis of left renal artery (HCC) Hypokalemia with normal acid-base balance Hypertension Crohn's disease of small intestine without complication, not otherwise specified (HCC) documented in this encounter Care Teams Metal Roofing Mechanic Relationship Specialty Start Date End Date Randal Perkins MD [address] [place], [place] PCP - General 12/09/20 documented as of this encounter
--- OUTSIDE RECORDS SUMMARY | 2025-10-24 13:47 | XMS_ITS | Encounter Summary ---
Author Organization [facility] Address [address] [place] [address] Phone Care Team Providers Care Filling Machine Set Up Mechanic Name Role Phone Randal Perkins MD Primary Care Provider + [phone] Encounter Details Date Type Department Care Team (Late st Contact Info) Description 05/19/2021 Orders Only [facility] [address] [place] [phone] Marisel Richards MD Disorder of calcium metabolism, not otherwise specified Social History Tobacco Use Types Packs/Day Years [...] Procedure Name Priority Date/Time Associated Diagnosis Comments CALCIUM, IONIZED Routine 05/19/2021 9:41 AM EDT Disorder of calcium metabolism, not otherwise specified documented in this encounter Results * Calcium, ionized (05/19/2021 9:41 AM EDT) Calcium Ionized pH 1.17 (1.13-1.32) MMOL/L [facility] Comment: Testing performed or reported by [facility], a Service of [facility], [address] [place] [id number] Angeline Perez MD, Elevator Pilot Blood specimen (specimen) Venous blood / Unknown 05/19/2021 9:41 AM EDT 05/19/2021 9:42 AM EDT us Marisel Richards MD LAB BLOOD ORDERABLES Final Resu lt Performing Organization Address City/State/ZIP Co wi Phone Number [facility] documented in this encounter Visit Diagnoses Diagnosis Disorder of calcium metabolism, not otherwise specified documented in this encounter Care Teams Filling Machine Set Up Mechanic Relationship Specialty Start Date End Date Randal Perkins MD [address] [place], [place] PCP - General 12/09/20 documented as of this encounter
--- OUTSIDE RECORDS SUMMARY | 2025-10-24 13:47 | XMS_ITS | Encounter Summary ---
Author Organization [facility], Address [address] [place] [address] Phone Care Team Providers Care Slitter Scorer Name Role Phone Randal Perkins MD Primary Care Provider [phone] Encounter Details Date Type Department Care Team (Late st Contact Info) Description 06/27/2025 Orders Only [facility], [address] [place] [phone] Dee Muniz, RN [address] [place] [address] Social History Tobacco Use Types Packs/Day Years [...] on filedocumented in this encounter Care Teams Slitter Scorer Relationship Specialty Start Date End Date Randal Perkins MD [address] [facility] [place], [place] PCP - General 12/09/20 documented as of this encounter
--- OUTSIDE RECORDS SUMMARY | 2025-10-24 13:47 | XMS_ITS | Encounter Summary ---
Author Organization [facility], Address [address] [place] [address] Phone Care Team Providers Care Epic Beacon Analyst Name Role Phone Randal Perkins MD Primary Care Provider [phone] Reason for Visit * Reason Onset Date Comments PCM f/u 10/05/2025 Encounter Details Date Type Department Care Team (Late st Contact Info) Description 10/05/2025 Telephone [facility] [address] [place] [phone] Trista Feliz, RN [address] [place] [phone] Social History Tobacco Use Types Packs/Day Years [...] on filedocumented in this encounter Care Teams Epic Beacon Analyst Relationship Specialty Start Date End Date Randal Perkins MD [address] [place], [place] PCP - General 12/09/20 documented as of this encounter
--- OUTSIDE RECORDS SUMMARY | 2025-10-24 13:47 | XMS_ITS | Encounter Summary ---
Author Organization [facility], Address [address] [place] [address] Phone Care Team Providers Care Mysql Database Developer Name Role Phone Randal Perkins MD Primary Care Provider [phone] Encounter Details Date Type Department Care Team (Late st Contact Info) Description 10/23/2025 Orders Only [facility], [address] [place] [address] [place], [place] [address] [place] [address] Social History Tobacco Use Types [...] on filedocumented in this encounter Care Teams Mysql Database Developer Relationship Specialty Start Date End Date Randal Perkins MD [address] [facility] [place], [place] PCP - General 12/09/20 documented as of this encounter
--- OUTSIDE RECORDS SUMMARY | 2025-10-24 13:47 | XMS_ITS | Encounter Summary ---
Author Organization [facility] Address [address] [place] [address] [place] [address] Phone Care Team Providers Care Gasket Notcher Name Role Phone Randal Perkins MD Primary Care Provider Reason for Referral * MRI/CAT Scan - Closed Specialty Diagnoses / Procedures Referred By Ariel sales Referred To Contact Procedures CT Abdomen/Pelvis Outside (No Interpretation) Crow Alberto MD Phone: tel: fax: mailto:[email or web address] Referral ID Status Reason Start Date Expiration Date Visits Re quested Visits Authorized [id number] Closed 11/30/2017 11/30/2018 1 1 Encounter Details Date Type Department Care Team (Late st Contact Info) Description 11/30/2017 Transcribe Orders [facility] [address] [place] [address] Katia Silvestre [address] [place] [phone] [email or web address] Social History Tobacco Use Types Packs/Day Years Used Date Smoking Tobacco: Never Comments Unknown Sex and Gender Information Value Date Recorded Sex Assigned at Female 06/24/2020 12:37 PM EDT Legal Sex Female 6:17 PM EST Gender Identity Female 06/24/2020 12:37 PM EDT Sexual Orientation Not on file documented as of this encounter Plan of Treatment Not on file documented as of this encounter Results * CT Abdomen/Pelvis Outside (No Interpretation) (11/30/2017 12:00 AM EST) Narrative SYSTEMGENERATED, DOCUMENTATION - 11/30/2017 11:10 AM EST This study is for PACS storage only and not for interpretation. us Crow Alberto MD IMG OUTSIDE IMAGING W/OUT I NTERPRETATION Final Result documented in this encounter Visit Diagnoses Not on filedocumented in this encounter Additional Health Concerns Infection Onset Date Last Indicated Resolved Time CDiff-Risk 05/24/2024 05/25/2024 05/25/2024 12:4 2 PM EDT documented as of this encounter Care Teams Gasket Notcher Relationship Specialty Start Date End Date Randal Perkins MD [facility] [address] PCP - General 05/29/14 documented as of this encounter Additional Source Comments The information contained in this document represents components of the legal health record. It is not the complete legal health record.[facility]
--- OUTSIDE RECORDS SUMMARY | 2025-10-24 13:47 | XMS_ITS | Encounter Summary ---
Author Organization [facility] Address [address] [facility] [place] [address] Phone Care Team Providers Care Swimming Coach Name Role Phone Randal Perkins MD Primary Care Provider Encounter Details Date Type Department Care Team (Late st Contact Info) Description 06/28/2019 Procedure Pass [facility] [address] [place] [address] Social History Tobacco Use Types Packs/Day Years [...] documented as of this encounter Care Teams Swimming Coach Relationship Specialty Start Date End Date Randal Perkins MD [address] [address] PCP - General 05/29/14 documented as of this encounter Additional Source Comments The information contained in this document represents components of the legal health record. It is not the complete legal health record.[facility]
--- OUTSIDE RECORDS SUMMARY | 2025-10-24 13:47 | XMS_ITS | Encounter Summary ---
Author Organization [facility] Address [address] [place] [address] Care Team Providers Care Buttermaker Helper Name Role Phone System, Provider Not In Primary Care Provider Un available Rodrigo Perkins MD Primary Care Provider + [phone] Rodrigo Perkins MD Primary Care Provider + [phone] Encounter Details Date Type Department Care Team (Late st Contact Info) Description 07/19/2023 Scanned Document [facility] [address] [facility] [address] [place] [phone] Provider, External, [address] [place] [address] Social History Tobacco Use Types Packs/Day Years Used Date Smoking Tobacco: Never Assessed Comments Unknown Sex and Gender Information Value Date Recorded Sex Assigned at Female 05/23/2025 10:48 AM EDT Legal Sex Female 11:09 AM EDT Gender Identity Female 05/23/2025 10:48 AM EDT Sexual Orientation Heterosexual (straight) 05/23 10:48 AM EDT documented as of this encounter Plan of Treatment Not on file documented as of this encounter Visit Diagnoses Not on filedocumented in this encounter Care Teams Buttermaker Helper Relationship Specialty Start Date End Date System, Provider Not In PCP - General 05/23/25 05/23/25 Rodrigo Perkins MD [address] [place] [address] PCP - General Internal Medicine 04/29/25 05/22/25 Rodrigo Perkins MD [address] [place] [address] PCP - General Internal Medicine 08/29/25 documented as of this encounter
--- OUTSIDE RECORDS SUMMARY | 2025-10-24 13:47 | XMS_ITS | Encounter Summary ---
Author Organization [facility], Address [address] [place] [address] Phone Care Team Providers Care Clinical Outcomes Manager Name Role Phone Randal Perkins MD Primary Care Provider + [phone] Encounter Details Date Type Department Care Team (Late st Contact Info) Description 10/23/2025 Telephone [facility], [address] [place] [phone] Melissa Rojas ID [address] [place] [address] Social History Tobacco Use Types [...] on file documented as of this encounter Miscellaneous Notes * Telephone Encounter - Melissa Rojas MA - 10/23/2025 9:22 AM EST Pt called in with some questions concerning if she can still get her Nulojix infusion on sat. As she is on iv antibiotics until 11/21 its called seftriaxone 2grams. Per Dr. Bass yes she can, I also let her know we will work on getting the biopsy rescheduled. Spoke with carline documented in this encounter Plan of Treatment Not on file documented as of this encounter Visit Diagnoses Not on filedocumented in this encounter Care Teams Clinical Outcomes Manager Relationship Specialty Start Date End Date Randal Perkins MD [address] [place], [place] PCP - General 12/09/20 documented as of this encounter
--- OUTSIDE RECORDS SUMMARY | 2025-10-24 13:47 | XMS_ITS | Encounter Summary ---
Author Organization [facility] Address [address] [place] [address] Phone Care Team Providers Care District Sales Coordinator Name Role Phone Randal Perkins MD Primary Care Provider Encounter Details Date Type Department Care Team (Late st Contact Info) Description 11/28/2018 EpicOnHand Encounter [facility] Crohns and Colitis [address] [place] [address] Tomasz Walden NP [address] [address] [email or web address] Social History Tobacco Use Types Packs/Day Years [...] documented as of this encounter Care Teams District Sales Coordinator Relationship Specialty Start Date End Date Randal Perkins MD [address] [address] PCP - General 05/29/14 documented as of this encounter Additional Source Comments The information contained in this document represents components of the legal health record. It is not the complete legal health record.[facility]
--- OUTSIDE RECORDS SUMMARY | 2025-10-24 13:47 | XMS_ITS | Encounter Summary ---
Author Organization [facility] Address [address] [place] [address] Phone Care Team Providers Care Scrap Drop Engineer Name Role Phone Randal Perkins MD Primary Care Provider [phone] Encounter Details Date Type Department Care Team ([facility] Contact Info) Description 07/28/2022 Documentation Only [facility] [address] [place] [phone] Scott Nunez MD [address] [place] [phone] Social History Tobacco Use Types Packs/Day Years [...] Exposure Response Date Recorded In the last 10 days, have yo u been in contact with someone who was confirmed or suspected to have Coronavirus/COVID-19? No / Unsure 07/27/2022 3:06 PM EDT documented as of this encounter Functional Status documented as of this encounter Plan of Treatment Not on file documented as of this encounter Visit Diagnoses Not on filedocumented in this encounter Care Teams Scrap Drop Engineer Relationship Specialty Start Date End Date Randal Perkins MD [address] [place], [place] PCP - General 12/09/20 documented as of this encounter
--- OUTSIDE RECORDS SUMMARY | 2025-10-24 13:47 | XMS_ITS | Encounter Summary ---
Author Organization [facility] Address [address] [place] [address] Phone Care Team Providers Care Safety Compliance Specialist Name Role Phone Randal Perkins MD Primary Care Provider [phone] Encounter Details Date Type Department Care Team (Late st Contact Info) Description 09/01/2022 Telephone [facility] [address] [place] [phone] Bonnie Crowell Social History Tobacco Use Types Packs/Day Years [...] suspected to have Coronavirus/COVID-19? No / Unsure 08/18/2022 9:20 AM EDT documented as of this encounter Miscellaneous Notes * Telephone Encounter - Bonnie Crowell - 09/01/2022 1:08 PM EDT Patient called and canceled her appt on due being in the hospital. She will call back to r/s when she's out documented in this encounter Plan of Treatment Not on file documented as of this encounter Visit Diagnoses Not on filedocumented in this encounter Care Teams Safety Compliance Specialist Relationship Specialty Start Date End Date Randal Perkins MD [facility] [place], [place] PCP - General 12/09/20 documented as of this encounter
--- OUTSIDE RECORDS SUMMARY | 2025-10-24 13:47 | XMS_ITS | Clinical Summary ---
Author Organization [facility] Address [address] [place] [address] Care Team Providers Care Hinging Machine Operator Name Role Phone Rodrigo Perkins MD Primary Care Provider [phone] Encounters Date Type Department Care Team Description 09/13/2025 11:[address] 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) from Last 3 Months Social History Tobacco Use Types Packs/Day Years Used Date Smoking Tobacco: Never Assessed Comments Unknown Sex and Gender Information Value Date Recorded Sex Assigned at Female 05/23/2025 10:48 AM EDT Legal Sex Female 11:09 AM EDT Gender Identity Female 05/23/2025 10:48 AM EDT Sexual Orientation Heterosexual (straight) 05/23 10:48 AM EDT Plan of Treatment Health Maintenance Due Date Last Done Comments Advance Care Planning 1945 Hepatitis C Virus Screening 1945 DTaP/Tdap/Td Vaccines (1 - Tdap) 1966 Pneumococcal Vaccines 50+ (1 of 2 - PCV) 1966 Zoster (Shingles) Vaccine (1 of 2) 1966 Hepatitis B Vaccines (1 of 3 - Risk Dialysis 4-dose series) 1967 DXA Bone Density (Females,Ag es 65 and older) 2012 RSV Vaccine 50 years and old er and Patients (1 - 1-dose 75+ series) 2022 COVID-19 Vaccine ( - 2024-2 6 season) 2025 09/17/2023, 04/06/2022, 08/19/2021, Additional history exists Influenza Vaccine Completed 09/19/2025, , 08/27/2023, Additional history exists Procedures Procedure Name Priority Date/Time Associated Diagnosis Comments LAB RESULT Routine 09/17/2025 2:27 PM EDT from Last 3 Months Results * LAB RESULT (09/17/2025 2:27 PM EDT) Xiang Bass MD HX AMB PROCEDURES Final Result from Last 3 Months Insurance [facility] MEDICARE [facility] MEDICARE Care Teams Hinging Machine Operator Relationship Specialty Start Date End Date Rodrigo Perkins MD [address] [place] [address] PCP - General Internal Medicine 08/29/25
--- OUTSIDE RECORDS SUMMARY | 2025-10-24 13:47 | XMS_ITS | Encounter Summary ---
Author Organization [facility] Address [address] [place] [address] Phone Care Team Providers Care Live Truck Operator Name Role Phone Randal Perkins MD Primary Care Provider Encounter Details Date Type Department Care Team (Late st Contact Info) Description 11/30/2017 Procedure Pass [facility] [address] [place] [phone] Social History Tobacco Use Types Packs/Day Years [...] documented as of this encounter Care Teams Live Truck Operator Relationship Specialty Start Date End Date Randal Perkins MD [facility] [address] [address] PCP - General 05/29/14 documented as of this encounter Additional Source Comments The information contained in this document represents components of the legal health record. It is not the complete legal health record.[facility]
--- OUTSIDE RECORDS SUMMARY | 2025-10-24 13:47 | XMS_ITS ---
Author Name [facility] Organization Unknown Problems Problem Status Onset Date Problem Type Date of Resoluti on Source [facility]ney [facility] Encounter Type Encounter Reason Primary Diagnosis Location Date Ambulatory Echograph 09/25/2025 Ambulatory Kidney transplant status Kidney transplant status Player X 05/31/2025 Care Team Organization Name Specialty Phone Email Start Date End Da te Player X [facility] Primary Care 09/25/[address] [facility] Primary Care 09/20/[address] [facility] Primary Care 06/05/[address] [facility] Primary Care 05/31/2025 [facility]ley[facility]ave[facility]o
--- OUTSIDE RECORDS SUMMARY | 2025-10-24 13:47 | XMS_ITS | Clinical Summary ---
Author Organization [facility], Address [address] [address] Phone Care Team Providers Care Section Leader Screen Printing Name Role Phone Randal Perkins MD Primary Care Provider [phone] Allergies Active Allergy Reactions Criticality Noted Date Comments Cefazolin Diarrhea 10/27/2018 Cephalexin Other (see comments) 03/19/2021 Metronidazole Other (see comments) 03/19/2021 Sulfamethoxazole-Trimetho prim 09/25/2025 Other Reaction(s): WBC count problem Valganciclovir 09/25/2025 Other Reaction(s): WBC count issue Medications Synthroid 200 MCG tablet Take 200 mcg by mouth 1 (one) time each day 021 Active metoprolol succinate XL (TOPROL-XL) 100 MG 24 hr tablet Take 100 mg by mouth 1 (one) time each day Do not crush or chew. Active levothyroxine (SYNTHROID, LEVOTHROID) 50 MCG tablet Take 50 mcg by mouth 1 (one) time each day Active cholestyramine light (Prevalite) 4 g packet Take 1 packet (4 g total) by mouth in the morning and 1 packet (4 g total) in the evening. 60 packet 025 2025 Active epoetin crescencio (Procrit) 93724 UNIT/ML injectionIndications :Anemia due to Renal Failure Inject 1 mL (20,000 Units total) under the skin every 7 (seven) days 4 mL 025 2025 Active Syringe/Needle, Disp, 25G X 5/8 3 ML misc To be used weekly with procrit 10 each Active hydroCHLOROthiazide 25 MG tablet Take 1 tablet (25 mg total) by mouth 1 (one) time each day 90 tablet 3 025 2025 Active predniSONE 5 MG tablet Take 1 tablet (5 mg total) by mouth 1 (one) time each day 90 tablet 3 2025 Active Belatacept (Nulojix) 250 MG reconstituted solution Infuse 5mg/kg q 28 days ; Pt weight as of 07/05/25 53kg 2 each Active fluticasone (FLONASE) 50 MCG/ACT nasal sprayIndications:Sta ge 3a chronic kidney disease (HCC),Neutropenia, not otherwise specified (HCC),Iron deficiency anemia, not otherwise specified,Status kidney transplant,Personal history of immunosuppression therapy,Anemia in chronic kidney disease,Other abnormal glucose Administer 1 spray into each nostril 1 (one) time each day 16 g 12 025 2025 Active torsemide (DEMADEX) 10 MG tablet Take 10 mg by mouth every other day Active ergocalciferol (Drisdol) 1.25 MG (60916 UT) capsule Take 1 capsule (50,000 Units total) by mouth every Wednesday and Wednesday 8 capsule 2025 Active calcium carbonate (OS-BEKAH) 1250 (500 Ca) MG chewable tablet CHEW 2 TABLETS BY MOUTH 3 TIMES DAILY 180 tablet 3 Active apixaban (Eliquis) 2.5 MG tablet Take 1 tablet (2.5 mg total) by mouth in the morning and 1 tablet (2.5 mg total) in the evening. 180 tablet 3 Active apixaban (Eliquis) 2.5 MG tablet Take 2.5 mg by mouth in the morning and 2.5 mg in the evening. 2024 Discontinued(R eorder (does not appear on AVS)) calcium carbonate (OS-BEKAH) 1250 (500 Ca) MG chewable tablet CHEW 2 TABLETS 3 TIMES DAILY 180 tablet 3 025 2024 Discontinued Active Problems Problem Noted Date Diagnosed Date Neutropenia 07/05/2025 Status kidney transplant 05/03/2025 Personal history of immunosuppression therapy Hydronephrosis 07/07/2022 Anemia in chronic kidney disease 03/02/2022 Acute nontraumatic kidney injury 03/19/2021 Benign secondary hypertension 03/19/2021 Stage 3a chronic kidney disease 03/19/2021 Iron deficiency anemia 03/19/2021 Renal stone 03/19/2021 Hypertension 08/24/2019 Resolved Problems Problem Noted Date Diagnosed Date Resolved Date Renal artery stenosis 03/02/20222021 section 01/06/2022 02/18/2022 Cholecystectomy 01/06/2022 02/18/2022 Cobalamin deficiency 01/06/2022 022 Erythema nodosum 01/06/2022 02/18/2022 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 FYI I d/c the warfarin 5 days before the surgery and then start the Lovenox 4 days before. End it 24 hrs prior to surgery. Then 24 hrs post op restart Lovenox and Coumadin. Overlap for 3 days, then drop the Lovenox Thanks for asking Malignant tumor of breast 01/06/2022 Osteoporosis 01/06/2022 02/18/2022 Paroxysmal atrial fibrillation 01/06/2022 02/18/2022 Steatotic liver disease 01/06/2022 032 01/2022 Crohn's disease 03/19/2021 01/06/2022 Edema of lower extremity 03/19/202106/2022 Hypokalemia with normal acid-base balance 03/19/2021 02/18/2022 Stenosis of left renal artery 03/19/2021 02/18/2022 Multinodular goiter 10/14/2012 02/19/20 22 Sepsis due to urinary tract infection 03/24/2008 02/18/2022 Encounters Date Type Department Care Team Description 10/23/2025 Orders Only [facility] [address] [place] [address] Melissa Rojas MA 10/23/2025 Telephone [facility] [address] [place] [address] Melissa Rojas MA 10/05/2025 Telephone [facility] [address] [place] [address] Trista Feliz, FELICITA 10/05/2025 Telephone [facility] [address] [place] [address] Iraida Howard 10/05/2025 Documentation Only [facility] [address] [place] [phone] Iraida Howard 10/04/2025 Orders Only [facility] [address] [place] [address] Trista Feliz, RN Personal history of immunosuppression therapy (Primary Dx); Status kidney transplant; Stage 3a chronic kidney disease (HCC) 10/03/2025 Orders Only [facility] [address] [place] [address] Trista Feliz, RN Stage 3a chronic kidney disease (HCC) (Primary Dx) 10/02/2025 Documentation Only [facility] [address] [place] [phone] Marilu Carlisle 10/02/2025 Orders Only [facility] [address] [place] [phone] Marilu Carlisle Stage 3a chronic kidney disease (HCC) (Primary Dx) 09/28/2025 Telephone [facility] [address] [place] [address] Melissa Rojas MA 09/27/2025 Refill [facility] [address] [place] [address] Xiang Bass MD 09/25/2025 Documentation Only [facility] [address] [place] [address] [place] [address] Regi Cho 09/25/2025 Documentation Only [facility] [address] [place] [address] [place] [address] Regi Cho 09/19/2025 11:45 AM EDT Office Visit [facility] [address] [place] [address] Xiang Bass MD Kidney replaced by transplant (Primary Dx); Personal history of immunosuppression therapy; Neutropenia, not otherwise specified (HCC); Stage 3a chronic kidney disease (HCC); Other cytomegaloviral disease (HCC) 09/19/2025 11:30 AM EDT Clinical Support [facility] [address] [place] [address] Trista Feliz, FELICITA Need for prophylactic vaccination and inoculation against influenza [Z23] (Primary Dx); Status kidney transplant [Z94.0]; Stage 3a chronic kidney disease (HCC) [N18.31] 09/19/2025 Orders Only [facility] [address] [place] [address] Trista Feliz, RN Personal history of immunosuppression therapy (Primary Dx); Status kidney transplant; Stage 3a chronic kidney disease (HCC) 08/31/2025 Telephone [facility] [address] [place] [address] Trista Feliz, FELICITA 08/29/2025 Telephone [facility] [address] [place] [address] Trista Feliz RN 08/24/2025 Telephone [facility] [address] [place] [address] Melissa Rojas MA 08/21/2025 Telephone [facility] [address] [place] [address] Trista Feliz RN 08/14/2025 9:45 AM EDT Office Visit [facility] [address] [place] [address] Xiang Bass MD Status kidney transplant (Primary Dx); Personal history of immunosuppression therapy; Kidney replaced by transplant; Neutropenia, not otherwise specified (HCC); Stage 3a chronic kidney disease (HCC); Anemia in chronic kidney disease 08/10/2025 Telephone [facility] [address] [place] [address] Trista Feliz RN 08/08/2025 Telephone [facility] [address] [place] [address] Trista Feliz RN 08/06/2025 Orders Only [facility] [address] [place] [address] Melissa Rojas MA Stage 3a chronic kidney disease (HCC) (Primary Dx); Neutropenia, not otherwise specified (HCC); Status kidney transplant; Anemia in chronic kidney disease; Chronic kidney disease stage 3B (HCC); Personal history of immunosuppression therapy; Iron deficiency anemia, not otherwise specified; Kidney replaced by transplant; Poor glycemic control; Other iron deficiency anemia; Hypoparathyroidism, not otherwise specified (HCC); Albuminuria, not otherwise specified; 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 Refill [facility] [address] [place] [address] Trista Feliz RN Stage 3a chronic kidney disease (HCC) (Primary Dx); Neutropenia, not otherwise specified (HCC); Iron deficiency anemia, not otherwise specified; Status kidney transplant; Personal history of immunosuppression therapy; Anemia in chronic kidney disease; Other abnormal glucose 08/02/2025 Telephone [facility] [address] [place] [address] Trista Feliz RN 08/01/2025 Telephone [facility] [address] [place] [address] Trista Feliz RN 07/31/2025 Refill [facility] [address] [place] [address] Trista Feliz RN 07/31/2025 Orders Only [facility] [address] [place] [address] Trista Feliz RN Stage 3a chronic kidney disease (HCC) (Primary Dx); Personal history of immunosuppression therapy; Status kidney transplant 07/28/2025 Orders Only [facility] [address] [place] [address] Sonido Davila MD 07/26/2025 Refill [facility] [address] [place] [address] Xiang Bass MD 07/26/2025 Telephone [facility] [address] [place] [address] Trista Feliz RN 07/26/2025 Orders Only [facility] [address] [place] [address] Trista Feliz RN Stage 3a chronic kidney disease (HCC) (Primary Dx); Neutropenia, not otherwise specified (HCC); Anemia in chronic kidney disease; Status kidney transplant; Personal history of immunosuppression therapy from Last 3 Months Immunizations Immunization Administration Dates Next Due Influenza TIV (IM) 10/26/2018 Influenza Whole 09/24/2009, 8,10/11/2007,12/06 Influenza, Quadrivalent, Pre servative Free 09/09/2017 Influenza, Recombinant, PF 09/19/2025 Influenza, Unspecified 09/14/2021 Pfizer SARS-COV-2 08/19/2021,01/20/2021,12/30/19 Pneumococcal Conjugate 13-Valent 05/29/2015 Pneumococcal Polysaccharide 07/12/2015, 2,11/11/2004 SARS-CoV-2, Unspecified 04/06/2022 Shingrix 08/26/2019,03/24/2019,03/24/2019 Td, Unspecified 04/30/2022,03/29/2005 Tdap 04/18/2013 Zoster 02/27/2019,11/04/2009 Family History Medical History Relation Comments Cancer Father prostate Heart disease Father Cancer Mother lung-smoker Relation Status Comments Father Mother Social History Tobacco Use Types Packs/Day Years Used Date Smoking Tobacco: Never Smokeless Tobacco: Never Tobacco Cessation:Counseling Given: Not Answered Alcohol Use Standard Drinks/Week Comments Not Currently 0 (1 standard drink = 0.6 oz pure alcohol) Alcoholic Drinks/day: Occasional social drink Comments Unknown Sex and Gender Information Value Date Recorded Sex Assigned at Not on file Legal Sex Female 5:16 PM EST Gender Identity Not on file Sexual Orientation Not on file Last Filed Vital Signs Vital Sign Reading Time Taken Comments Blood Pressure 132/58 08/14/2025 9:51 AM EDT Pulse 70 04/24/2025 9:13 AM EDT Temperature - - Respiratory Rate - - Oxygen Saturation 97% 08/25/2022 4:50 PM EDT Inhaled Oxygen Concentration - - Weight 52.4 kg (115 lb 9.6 oz) 08/14/2025 9:51 A M EDT Height 160 cm (5' 3 ) 10/27/2021 4:04 PM EST Body Mass Index 20.48 10/27/2021 4:04 PM EST Plan of Treatment Health Maintenance Due Date Last Done Comments Hepatitis B Vaccine (1 of 3 - Risk 3-dose series) 2007 Diabetes: Ophthalmology Exam 04/17/2025 Diabetes: Pedal Pulse Checked 04/17/2025 Diabetes: Sensory Foot Exam 04/17/2025 Diabetes: Visual Foot Exam 04/17/2025 Diabetes: Hemoglobin A1C 12/14/2025 09/13/2025, 07/30 Pneumococcal Vaccine: 50+ Years Completed 07/12/2015, 05/29/2015, 10/14/2012, Additional history exists Pneumococcal Vaccine: Peds ( 0 to 5 Years) and At-Risk Patients (6 to 49 Years) Discontinued 07/12/2015, 05/29/2015, 10/14/2012, Additional history exists Influenza Vaccine Completed 09/19/2025, , 09/14/2021, Additional history exists Procedures Procedure Name Priority Date/Time Associated Diagnosis Comments CBC AND DIFFERENTIAL Routine 10/04/2025 11:04 AM EST Stage 3a chronic kidney disease (HCC) PROTIME-INR Routine 10/04/2025 11:04 AM EST Stage 3a chronic kidney disease (HCC) RENAL FUNCTION PANEL Routine 10/04/2025 11:03 AM EST Stage 3a chronic kidney disease (HCC) URINALYSIS, COMPLETE Routine 10/04/2025 11:03 AM EST Stage 3a chronic kidney disease (HCC) MICROSCOPIC EXAMINATION - DO NOT USE Routine 10/04/2025 11:03 AM EST DSA (SHELL) [facility] Routine 09/17/2025 3 :11 PM EDT Status kidney transplant Personal history of immunosuppression therapy Iron deficiency anemia, not otherwise specified Stage 3a chronic kidney disease (HCC) Neutropenia, not otherwise specified (HCC) Anemia in chronic kidney disease Other abnormal glucose Pure hypercholesterolemia, not otherwise specified REFLEXIVE URINE CULTURE (HC) Routine 09/13/2025 10:46 AM EDT BK VIRUS, DNA, URINE, QUANTITATIVE Routine 09/13/2025 10:46 AM EDT Status kidney transplant Personal history of immunosuppression therapy Iron deficiency anemia, not otherwise specified Stage 3a chronic kidney disease (HCC) Neutropenia, not otherwise specified (HCC) Anemia in chronic kidney disease Other abnormal glucose Pure hypercholesterolemia, not otherwise specified BK VIRUS, DNA, QUANTITATIVE Routine 09/13/2025 10:46 AM EDT Status kidney transplant Personal history of immunosuppression therapy Iron deficiency anemia, not otherwise specified Stage 3a chronic kidney disease (HCC) Neutropenia, not otherwise specified (HCC) Anemia in chronic kidney disease Other abnormal glucose Pure hypercholesterolemia, not otherwise specified PROTIME-INR Routine 09/13/2025 10:46 AM EDT Status kidney transplant Personal history of immunosuppression therapy Iron deficiency anemia, not otherwise specified Stage 3a chronic kidney disease (HCC) Neutropenia, not otherwise specified (HCC) Anemia in chronic kidney disease Other abnormal glucose Pure hypercholesterolemia, not otherwise specified HEMOGLOBIN A1C Routine 09/13/2025 10:46 AM EDT Status kidney transplant Personal history of immunosuppression therapy Iron deficiency anemia, not otherwise specified Stage 3a chronic kidney disease (HCC) Neutropenia, not otherwise specified (HCC) Anemia in chronic kidney disease Other abnormal glucose Pure hypercholesterolemia, not otherwise specified URINALYSIS, COMPLETE Routine 09/13/2025 10:46 AM EDT Status kidney transplant Personal history of immunosuppression therapy Iron deficiency anemia, not otherwise specified Stage 3a chronic kidney disease (HCC) Neutropenia, not otherwise specified (HCC) Anemia in chronic kidney disease Other abnormal glucose Pure hypercholesterolemia, not otherwise specified URINE ALBUMIN / CREATININE RATIO Routine 09/13/2025 10:46 AM EDT Status kidney transplant Personal history of immunosuppression therapy Iron deficiency anemia, not otherwise specified Stage 3a chronic kidney disease (HCC) Neutropenia, not otherwise specified (HCC) Anemia in chronic kidney disease Other abnormal glucose Pure hypercholesterolemia, not otherwise specified CREATINE KINASE Routine 09/13/2025 10:46 AM EDT Status kidney transplant Personal history of immunosuppression therapy Iron deficiency anemia, not otherwise specified Stage 3a chronic kidney disease (HCC) Neutropenia, not otherwise specified (HCC) Anemia in chronic kidney disease Other abnormal glucose Pure hypercholesterolemia, not otherwise specified AST Routine 09/13/2025 10:46 AM EDT Status kidney transplant Personal history of immunosuppression therapy Iron deficiency anemia, not otherwise specified Stage 3a chronic kidney disease (HCC) Neutropenia, not otherwise specified (HCC) Anemia in chronic kidney disease Other abnormal glucose Pure hypercholesterolemia, not otherwise specified ALT Routine 09/13/2025 10:46 AM EDT Status kidney transplant Personal history of immunosuppression therapy Iron deficiency anemia, not otherwise specified Stage 3a chronic kidney disease (HCC) Neutropenia, not otherwise specified (HCC) Anemia in chronic kidney disease Other abnormal glucose Pure hypercholesterolemia, not otherwise specified PTH, INTACT Routine 09/13/2025 10:46 AM EDT Status kidney transplant Personal history of immunosuppression therapy Iron deficiency anemia, not otherwise specified Stage 3a chronic kidney disease (HCC) Neutropenia, not otherwise specified (HCC) Anemia in chronic kidney disease Other abnormal glucose Pure hypercholesterolemia, not otherwise specified IRON PANEL (FE, TIBC, TSAT) Routine 09/13/2025 10:46 AM EDT Status kidney transplant Personal history of immunosuppression therapy Iron deficiency anemia, not otherwise specified Stage 3a chronic kidney disease (HCC) Neutropenia, not otherwise specified (HCC) Anemia in chronic kidney disease Other abnormal glucose Pure hypercholesterolemia, not otherwise specified FERRITIN Routine 09/13/2025 10:46 AM EDT Status kidney transplant Personal history of immunosuppression therapy Iron deficiency anemia, not otherwise specified Stage 3a chronic kidney disease (HCC) Neutropenia, not otherwise specified (HCC) Anemia in chronic kidney disease Other abnormal glucose Pure hypercholesterolemia, not otherwise specified MAGNESIUM Routine 09/13/2025 10:46 AM EDT Status kidney transplant Personal history of immunosuppression therapy Iron deficiency anemia, not otherwise specified Stage 3a chronic kidney disease (HCC) Neutropenia, not otherwise specified (HCC) Anemia in chronic kidney disease Other abnormal glucose Pure hypercholesterolemia, not otherwise specified LIPID PANEL Routine 09/13/2025 10:46 AM EDT Status kidney transplant Personal history of immunosuppression therapy Iron deficiency anemia, not otherwise specified Stage 3a chronic kidney disease (HCC) Neutropenia, not otherwise specified (HCC) Anemia in chronic kidney disease Other abnormal glucose Pure hypercholesterolemia, not otherwise specified URIC ACID Routine 09/13/2025 10:46 AM EDT Status kidney transplant Personal history of immunosuppression therapy Iron deficiency anemia, not otherwise specified Stage 3a chronic kidney disease (HCC) Neutropenia, not otherwise specified (HCC) Anemia in chronic kidney disease Other abnormal glucose Pure hypercholesterolemia, not otherwise specified VITAMIN D 25 HYDROXY Routine 09/13/2025 10:46 AM EDT Status kidney transplant Personal history of immunosuppression therapy Iron deficiency anemia, not otherwise specified Stage 3a chronic kidney disease (HCC) Neutropenia, not otherwise specified (HCC) Anemia in chronic kidney disease Other abnormal glucose Pure hypercholesterolemia, not otherwise specified CBC AND DIFFERENTIAL Routine 09/13/2025 10:46 AM EDT Status kidney transplant Personal history of immunosuppression therapy Iron deficiency anemia, not otherwise specified Stage 3a chronic kidney disease (HCC) Neutropenia, not otherwise specified (HCC) Anemia in chronic kidney disease Other abnormal glucose Pure hypercholesterolemia, not otherwise specified RENAL FUNCTION PANEL Routine 09/13/2025 10:46 AM EDT Status kidney transplant Personal history of immunosuppression therapy Iron deficiency anemia, not otherwise specified Stage 3a chronic kidney disease (HCC) Neutropenia, not otherwise specified (HCC) Anemia in chronic kidney disease Other abnormal glucose Pure hypercholesterolemia, not otherwise specified MICROSCOPIC EXAMINATION - DO NOT USE Routine 09/13/2025 10:46 AM EDT CMV DNA, QUANTITATIVE, PCR Routine 08/30/2025 11:22 AM EDT Stage 3a chronic kidney disease (HCC) Neutropenia, not otherwise specified (HCC) Iron deficiency anemia, not otherwise specified Status kidney transplant Personal history of immunosuppression therapy Anemia in chronic kidney disease Other abnormal glucose CBC AND DIFFERENTIAL Routine 08/30/2025 11:22 AM EDT Stage 3a chronic kidney disease (HCC) Neutropenia, not otherwise specified (HCC) Iron deficiency anemia, not otherwise specified Status kidney transplant Personal history of immunosuppression therapy Anemia in chronic kidney disease Other abnormal glucose CMV DNA, QUANTITATIVE, PCR Routine 08/23/2025 10:53 AM EDT Status kidney transplant Personal history of immunosuppression therapy Stage 3a chronic kidney disease (HCC) Neutropenia, not otherwise specified (HCC) RENAL FUNCTION PANEL Routine 08/23/2025 10:53 AM EDT Status kidney transplant Personal history of immunosuppression therapy Stage 3a chronic kidney disease (HCC) Neutropenia, not otherwise specified (HCC) CBC AND DIFFERENTIAL Routine 08/23/2025 10:53 AM EDT Status kidney transplant Personal history of immunosuppression therapy Stage 3a chronic kidney disease (HCC) Neutropenia, not otherwise specified (HCC) CBC AND DIFFERENTIAL Routine 08/16/2025 11:01 AM EDT Status kidney transplant Personal history of immunosuppression therapy Neutropenia, not otherwise specified (HCC) Stage 3a chronic kidney disease (HCC) REFLEXIVE URINE CULTURE (HC) Routine 08/10/2025 10:56 AM EDT BK VIRUS, DNA, QUANTITATIVE Routine 08/10/2025 10:56 AM EDT Stage 3a chronic kidney disease (HCC) Neutropenia, not otherwise specified (HCC) Status kidney 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) Personal history of immunosuppression therapy Iron deficiency anemia, not otherwise specified Kidney replaced by transplant Poor glycemic control Other iron deficiency anemia Hypoparathyroidism, not otherwise specified (HCC) Albuminuria, 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 BK VIRUS, DNA, URINE, QUANTITATIVE Routine 08/10/2025 10:56 AM EDT Stage 3a chronic kidney disease (HCC) Neutropenia, not otherwise specified (HCC) Status kidney 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) Personal history of immunosuppression therapy Iron deficiency anemia, not otherwise specified Kidney replaced by transplant Poor glycemic control Other iron deficiency anemia Hypoparathyroidism, not otherwise specified (HCC) Albuminuria, 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 URINALYSIS, COMPLETE Routine 08/10/2025 10:56 AM EDT Stage 3a chronic kidney disease (HCC) Neutropenia, not otherwise specified (HCC) Status kidney 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) Personal history of immunosuppression therapy Iron deficiency anemia, not otherwise specified Kidney replaced by transplant Poor glycemic control Other iron deficiency anemia Hypoparathyroidism, not otherwise specified (HCC) Albuminuria, 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 URINE ALBUMIN / CREATININE RATIO Routine 08/10/2025 10:56 AM EDT Stage 3a chronic kidney disease (HCC) Neutropenia, not otherwise specified (HCC) Status kidney 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) Personal history of immunosuppression therapy Iron deficiency anemia, not otherwise specified Kidney replaced by transplant Poor glycemic control Other iron deficiency anemia Hypoparathyroidism, not otherwise specified (HCC) Albuminuria, 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 PTH, INTACT Routine 08/10/2025 10:56 AM EDT Stage 3a chronic kidney disease (HCC) Neutropenia, not otherwise specified (HCC) Status kidney 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) Personal history of immunosuppression therapy Iron deficiency anemia, not otherwise specified Kidney replaced by transplant Poor glycemic control Other iron deficiency anemia Hypoparathyroidism, not otherwise specified (HCC) Albuminuria, 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 IRON PANEL (FE, TIBC, TSAT) Routine 08/10/2025 10:56 AM EDT Stage 3a chronic kidney disease (HCC) Neutropenia, not otherwise specified (HCC) Status kidney 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) Personal history of immunosuppression therapy Iron deficiency anemia, not otherwise specified Kidney replaced by transplant Poor glycemic control Other iron deficiency anemia Hypoparathyroidism, not otherwise specified (HCC) Albuminuria, 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 FERRITIN Routine 08/10/2025 10:56 AM EDT Stage 3a chronic kidney disease (HCC) Neutropenia, not otherwise specified (HCC) Status kidney 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) Personal history of immunosuppression therapy Iron deficiency anemia, not otherwise specified Kidney replaced by transplant Poor glycemic control Other iron deficiency anemia Hypoparathyroidism, not otherwise specified (HCC) Albuminuria, 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 CREATINE KINASE Routine 08/10/2025 10:56 AM EDT Stage 3a chronic kidney disease (HCC) Neutropenia, not otherwise specified (HCC) Status kidney 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) Personal history of immunosuppression therapy Iron deficiency anemia, not otherwise specified Kidney replaced by transplant Poor glycemic control Other iron deficiency anemia Hypoparathyroidism, not otherwise specified (HCC) Albuminuria, 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 ALT Routine 08/10/2025 10:56 AM EDT Stage 3a chronic kidney disease (HCC) Neutropenia, not otherwise specified (HCC) Status kidney 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) Personal history of immunosuppression therapy Iron deficiency anemia, not otherwise specified Kidney replaced by transplant Poor glycemic control Other iron deficiency anemia Hypoparathyroidism, not otherwise specified (HCC) Albuminuria, 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 AST Routine 08/10/2025 10:56 AM EDT Stage 3a chronic kidney disease (HCC) Neutropenia, not otherwise specified (HCC) Status kidney 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) Personal history of immunosuppression therapy Iron deficiency anemia, not otherwise specified Kidney replaced by transplant Poor glycemic control Other iron deficiency anemia Hypoparathyroidism, not otherwise specified (HCC) Albuminuria, 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 HEMOGLOBIN A1C Routine 08/10/2025 10:56 AM EDT Stage 3a chronic kidney disease (HCC) Neutropenia, not otherwise specified (HCC) Status kidney 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) Personal history of immunosuppression therapy Iron deficiency anemia, not otherwise specified Kidney replaced by transplant Poor glycemic control Other iron deficiency anemia Hypoparathyroidism, not otherwise specified (HCC) Albuminuria, 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 CBC AND DIFFERENTIAL Routine 08/10/2025 10:56 AM EDT Stage 3a chronic kidney disease (HCC) Neutropenia, not otherwise specified (HCC) Status kidney 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) Personal history of immunosuppression therapy Iron deficiency anemia, not otherwise specified Kidney replaced by transplant Poor glycemic control Other iron deficiency anemia Hypoparathyroidism, not otherwise specified (HCC) Albuminuria, 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 RENAL FUNCTION PANEL Routine 08/10/2025 10:56 AM EDT Stage 3a chronic kidney disease (HCC) Neutropenia, not otherwise specified (HCC) Status kidney 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) Personal history of immunosuppression therapy Iron deficiency anemia, not otherwise specified Kidney replaced by transplant Poor glycemic control Other iron deficiency anemia Hypoparathyroidism, not otherwise specified (HCC) Albuminuria, 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 MICROSCOPIC EXAMINATION - DO NOT USE Routine 08/10/2025 10:56 AM EDT XR CHEST 2 VIEWS Routine 08/08/2025 10:5 6 AM EDT Status kidney transplant Stage 3a chronic kidney disease (HCC) Hypoxemia IMMATURE CELLS Routine 08/03/2025 10:52 AM EDT CBC AND DIFFERENTIAL Routine 08/03/2025 10:52 AM EDT Stage 3a chronic kidney disease (HCC) Neutropenia, not otherwise specified (HCC) IMMATURE CELLS Routine 07/31/2025 11:02 AM EDT CBC AND DIFFERENTIAL Routine 07/31/2025 11:02 AM EDT Neutropenia, not otherwise specified (HCC) RENAL FUNCTION PANEL Routine 07/31/2025 11:01 AM EDT Stage 3a chronic kidney disease (HCC) Personal history of immunosuppression therapy Status kidney transplant CMV DNA, QUANTITATIVE, PCR Routine 07/31/2025 11:01 AM EDT Stage 3a chronic kidney disease (HCC) Personal history of immunosuppression therapy Status kidney transplant VITAMIN B12 Routine 07/26/2025 10:59 AM EDT Stage 3a chronic kidney disease (HCC) Neutropenia, not otherwise specified (HCC) Anemia in chronic kidney disease Status kidney transplant Personal history of immunosuppression therapy URINALYSIS, COMPLETE Routine 07/26/2025 10:59 AM EDT Stage 3a chronic kidney disease (HCC) Neutropenia, not otherwise specified (HCC) Anemia in chronic kidney disease Status kidney transplant Personal history of immunosuppression therapy CMV DNA, QUANTITATIVE, PCR Routine 07/26/2025 10:59 AM EDT Stage 3a chronic kidney disease (HCC) Neutropenia, not otherwise specified (HCC) Anemia in chronic kidney disease Status kidney transplant Personal history of immunosuppression therapy CBC AND DIFFERENTIAL Routine 07/26/2025 10:59 AM EDT Stage 3a chronic kidney disease (HCC) Neutropenia, not otherwise specified (HCC) Anemia in chronic kidney disease Status kidney transplant Personal history of immunosuppression therapy MICROSCOPIC EXAMINATION - DO NOT USE Routine 07/26/2025 10:59 AM EDT from Last 3 Months Results * (ABNORMAL) Protime-INR (10/04/2025 11:04 AM EST) Only the most recent of2 resultswithin the time period is included. INR 1.3(H) 0.9 - 1.2 [facility] Comment: Reference interval is for non-anticoagulated patients. Suggested INR therapeutic range for Vitamin K antagonist therapy: Standard Dose (moderate intensity therapeutic range): 2.0 - 3.0 Higher intensity therapeutic range 2.5 - 3.5 Protime 13.1(H) 9.1 - 12.0 sec [facility] Blood Venous blood / Unknown 10/04/2025 11:04 AM EST 10/04/2025 us Gregory Christie MD LAB BLOOD ORDERABLES Final Resu lt [facility] [address] [place] [address] * (ABNORMAL) CBC and differential (10/04/2025 11:04 AM EST) Only the most recent of9 resultswithin the time period is included. WBC 9.1 3.4 - 10.8 x10E3/uL [facility] RBC 3.43(L) 3.77 - 5.28 x10E6/uL [facility] Hemoglobin 10.8(L) 11.1 - 15.9 g/dL [facility] Hematocrit 34.4 34.0 - 46.6 % [facility] MCV 100(H) 79 - 97 fL [facility] MCH 31.5 26.6 - 33.0 pg [facility] MCHC 31.4(L) 31.5 - 35.7 g/dL [facility] RDW 14.8 11.7 - 15.4 % [facility] Platelets 166 150 - 450 x10E3/uL [facility] Neutrophils Relative 88 Not Estab. % [facility] Lymphocytes Relative 3 Not Estab. % [facility] Monocytes 7 Not Estab. % [facility] Eosinophils Relative 0 Not Estab. % [facility] Basophils Relative 0 Not Estab. % [facility] Neutrophils Absolute 8.0(H) 1.4 - 7.0 x10E3/uL [facility] Lymphocytes Absolute 0.2(L) 0.7 - 3.1 x10E3/uL [facility] Monocytes Absolute 0.7 0.1 - 0.9 x10E3/uL [facility] Eosinophils Absolute 0.0 0.0 - 0.4 x10E3/uL [facility] Basophils Absolute 0.0 0.0 - 0.2 x10E3/uL [facility] Immature Granulocytes 2 Not Estab. % [facility] Immature Grans (Absolute) 0.2(H) 0.0 - 0.1 x10E3/uL [facility] Comment: (An elevated percentage of Immature Granulocytes has not been found to be clinically significant as a sole clinical predictor of disease. Does NOT include bands or blast cells. associated physiological leukocytosis may also show increased immature granulocytes without clinical significance.) Blood Venous blood / Unknown 10/04/2025 11:04 AM EST 10/04/2025 Gregory Christie MD LAB BLOOD ORDERABLES Final Resu lt [facility] [address] [place] [address] * (ABNORMAL) Urinalysis, Complete w/reflex to Culture (10/04/2025 11:03 AM EST) Only the most recent of4 resultswithin the time period is included. Specific Gonzales, Urine 1.019 1.005 - 1.030 [facility] pH Urine 5.5 5.0 - 7.5 [facility] [phone] Color, Urine Yellow Yellow [facility] Appearance Urine Clear Clear [facility] [place] WBC Esterase Urine Negative Negative [facility] [phone] Protein, Ur 1+(A) Negative/Tra ce [facility] Glucose, Ur Negative Negative [facility] Ketones, Urine Negative Negative [facility] [place] [phone] Blood Urine Negative Negative [facility] [phone] Bilirubin Urine Negative Negative [facility] [place] [phone] Urobilinogen Urine 0.2 0.2 - 1.0 mg/dL [facility] [phone] Nitrite, Urine Negative Negative [facility] [place] [phone] Microscopic Examination See below: [facility] Comment:Microscopic was lucinda cated and was performed. URINALYSIS REFLEX Comment [facility] [phone] Comment:This specimen will n ot reflex to a Urine Culture. Urine Urine specimen obtained by clean catch procedure / Unknown 10/04/2025 11:03 AM EST 10/04/2025 us Xiang Bass MD LAB URINE ORDERABLES Final Result [facility] [address] [place] [address] * Microscopic Examination (10/04/2025 11:03 AM EST) Only the most recent of4 resultswithin the time period is included. WBC, Urine 0-5 0 - 5 /hpf [facility] RBC, Urine 0-2 0 - 2 /hpf [facility] Squamous Epithelial, Urine 0-10 0 - 10 /hpf [facility] Casts None seen None seen /lpf [facility] Bacteria, Urine None seen None seen/Few [facility] 10/04/2025 11:0 3 AM EST 10/04/2025 Xiang Bass MD LAB MICROBIOLOGY - GENERAL ORDERABLES Final Result [facility] [address] [place] [address] * (ABNORMAL) Renal function panel (10/04/2025 11:03 AM EST) Only the most recent of5 resultswithin the time period is included. Glucose 124(H) 70 - 99 mg/dL [facility] BUN 24 8 - 27 mg/dL [facility] Creatinine 1.63(H) 0.57 - 1.00 mg/dL [facility] eGFR CKD-EPI CR 2020 32(L) >59 mL/min/1.7 3 [facility] BUN/Creatinine Ratio 15 12 - 28 [facility] Sodium 138 134 - 144 mmol/L [facility] Potassium 4.2 3.5 - 5.2 mmol/L [facility] Chloride 101 96 - 106 mmol/L [facility] Bicarbonate (CO2) 19(L) 20 - 29 mmol/L [facility] Calcium 8.7 8.7 - 10.3 mg/dL [facility] Albumin 3.9 3.8 - 4.8 g/dL [facility] Phosphorus 3.2 3.0 - 4.3 mg/dL [facility] Blood Venous blood / Unknown 10/04/2025 11:03 AM EST 10/04/2025 Xiang Bass MD LAB BLOOD ORDERABLES Final Result Performing Organization Address City/[facility]/ZIP Co de Phone Number [facility] [address] [place] [address] * DSA (Shell) [facility] (09/17/2025 3:11 PM EDT) Xiang Bass MD LAB BLOOD ORDERABLES Final Result [facility] * Reflexive Urine Culture (09/13/2025 10:46 AM EDT) Only the most recent of2 resultswithin the time period is included. Culture Result, Urine Final report [facility] Result Comment [facility] Comment: Mixed urogenital cristian 10,000-25,000 colony forming units per mL 09/13/2025 10:4 6 AM EDT 09/13/2025 Xiang Bass MD LAB HISTORICAL-CONVERSIONS -UNSOLICITED RESULTS Final Result Performing Organization Address City/[facility]/ZIP Co de Phone Number [facility] [address] [place] [address] * Iron Panel (Fe, TIBC, TSAT) (09/13/2025 10:46 AM EDT) Only the most recent of2 resultswithin the time period is included. UIBC 279 118 - 369 ug/dL [facility] TIBC 343 250 - 450 ug/dL [facility] Iron 64 27 - 139 ug/dL [facility] Iron Saturation (TSat) 19 15 - 55 % [facility] Blood 09/13/2025 10:4 6 AM EDT 09/13/2025 Xiang Bass MD LAB BLOOD ORDERABLES Final Result Performing Organization Address [facility] de Phone Number [facility] [place] [address] [place] [address] * (ABNORMAL) Urine Albumin / Creatinine Ratio (09/13/2025 10:46 AM EDT) Only the most recent of2 resultswithin the time period is included. Creatinine, Ur 59.0 Not Estab. mg/dL [facility] Albumin, Urine 82.4 Not Estab. ug/mL [facility] Albumin/Creatin ine Ratio 140(H) 0 - 29 mg/g creat [facility] Comment: Normal: 0 - 29 Moderately increased: 30 - 300 Severely increased: >300 Urine 09/13/2025 10:4 6 AM EDT 09/13/2025 Xiang Bass MD LAB URINE ORDERABLES Final Result Performing Organization Address City/[facility] Co de Phone Number [facility] [place] [address] [place] [address] * BK Virus Urine, Quant PCR (09/13/2025 10:46 AM EDT) Only the most recent of2 resultswithin the time period is included. BK VIRUS PCR, QUANT, U Negative Negative IU/mL [facility] Comment: No BK DNA detected. The linear range of the assay is 200 - 100,000,000 IU/ml Urine Urine specimen obtained by clean catch procedure / Unknown 09/13/2025 10:46 AM EDT 09/13/2025 Xiang Bass MD LAB URINE ORDERABLES Final Result Performing Organization Address [facility]/ZIP Co de Phone Number [facility] [address] [place] [address] * BK Virus DNA, Quant PCR (09/13/2025 10:46 AM EDT) Only the most recent of2 resultswithin the time period is included. Pathologist [facility] BK VIRUS DNA, PCR Negative Negative IU/mL [facility] Comment: No BK DNA detected. The linear range of the assay is 22 - 100,000,000 IU/mL. Blood Venous blood / Unknown 09/13/2025 10:46 AM EDT 09/13/2025 Xiang Bass MD LAB BLOOD ORDERABLES Final Result Performing Organization Address City/[facility]/ZIP Co de Phone Number [facility] [address] [place] [address] * (ABNORMAL) Vitamin D 25 Hydroxy (09/13/2025 10:46 AM EDT) Pathologist [facility] Vitamin D, 25-OH, Total 17.6(L) 30.0 - 100.0 ng/mL [facility] Comment: Vitamin D deficiency has been defined by the [place] of Medicine and an Endocrine Society practice guideline as a level of serum 25-OH vitamin D less than 20 ng/mL (1,2). The Endocrine Society went on to further define vitamin D insufficiency as a level between 21 and 29 ng/mL (2). 1. IOM ([place] of [employer]). 2010. Dietary reference intakes for calcium and D. [place]: The National Academies Press. 2. Emma MF, Jose Maria ALMODOVAR, Cam ROLLE, et al. Evaluation, treatment, and prevention of vitamin D deficiency: an Endocrine Society clinical practice guideline. JCEM. 2010; 96(7):1911-30. Blood 09/13/2025 10:4 6 AM EDT 09/13/2025 Xiang Bass MD LAB BLOOD ORDERABLES Final Result [employer] [place] [address] [place] [address] * (ABNORMAL) Uric Acid (09/13/2025 10:46 AM EDT) Uric Acid 10.5(H) 3.1 - 7.9 mg/dL [facility] [place] Comment:Therapeutic target f or gout patients: <6.0 Blood 09/13/2025 10:4 6 AM EDT 09/13/2025 Xiang Bass MD LAB BLOOD ORDERABLES Final Result [employer] [place] [address] [place] [address] * ALT (09/13/2025 10:46 AM EDT) Only the most recent of2 resultswithin the time period is included. ALT (SGPT) 25 0 - 32 IU/L [facility] Blood 09/13/2025 10:4 6 AM EDT 09/13/2025 Xiang Bass MD LAB BLOOD ORDERABLES Final Result Performing Organization Address City/[facility]/ZIP Co de Phone Number [facility] [address] [place] [address] * (ABNORMAL) AST (09/13/2025 10:46 AM EDT) Only the most recent of2 resultswithin the time period is included. AST (SGOT) 46(H) 0 - 40 IU/L [facility] Blood 09/13/2025 10:4 6 AM EDT 09/13/2025 Xiang Bass MD LAB BLOOD ORDERABLES Final Result Performing Organization Address [facility] Co de Phone Number [facility] [address] [place] [address] * PTH, Intact (09/13/2025 10:46 AM EDT) Only the most recent of2 resultswithin the time period is included. PTH 58 15 - 65 pg/mL [facility] Blood 09/13/2025 10:4 6 AM EDT 09/13/2025 Xiang Bass MD LAB BLOOD ORDERABLES Final Result Performing Organization Address City/[facility]/ZIP Co de Phone Number [facility] [address] [place] [address] * Magnesium (09/13/2025 10:46 AM EDT) Magnesium 2.0 1.6 - 2.3 mg/dL [facility] Blood 09/13/2025 10:4 6 AM EDT 09/13/2025 Xiang Bass MD LAB BLOOD ORDERABLES Final Result Performing Organization Address [facility] de Phone Number [facility] [place] [address] [place] [address] * (ABNORMAL) Hemoglobin A1c (09/13/2025 10:46 AM EDT) Only the most recent of2 resultswithin the time period is included. [facility] Hemoglobin A1C 4.7(L) 4.8 - 5.6 % [facility] Comment: Prediabetes: 5.7 - 6.4 Diabetes: >6.4 Glycemic control for adults with diabetes: <7.0 Blood Venous blood / Unknown 09/13/2025 10:46 AM EDT 09/13/2025 Xiang Bass MD LAB BLOOD ORDERABLES Final Result Performing Organization Address [facility] de Phone Number [facility] [address] [place] [address] * (ABNORMAL) Ferritin (09/13/2025 10:46 AM EDT) Only the most recent of2 resultswithin the time period is included. [facility] Ferritin 2,334(H) 15 - 150 ng/mL [facility] Comment: Results confirmed on dilution. Blood 09/13/2025 10:4 6 AM EDT 09/13/2025 Xiang Bass MD LAB BLOOD ORDERABLES Final Result Performing Organization Address [facility] Co de Phone Number [facility] [address] [place] [address] * CK (09/13/2025 10:46 AM EDT) Only the most recent of2 resultswithin the time period is included. [facility] Creatine Kinase (CK/CPK) 55 32 - 182 U/L [facility] Blood 09/13/2025 10:4 6 AM EDT 09/13/2025 Xiang Bass MD LAB BLOOD ORDERABLES Final Result [facility] [place] [address] [place] [address] * (ABNORMAL) Lipid panel (09/13/2025 10:46 AM EDT) Cholesterol 153 100 - 199 mg/dL [facility] [place] Triglycerides 151(H) 0 - 149 mg/dL [facility] HDL 66 >39 mg/dL [facility] [place] VLDL Cholesterol Bekah 25 5 - 40 mg/dL [facility] [place] LDL Calculated 62 0 - 99 mg/dL [facility] [place] Blood 09/13/2025 10:4 6 AM EDT 09/13/2025 Xiang Bass MD LAB BLOOD ORDERABLES Final Result [facility] [place] [address] [place] [address] * CMV PCR Quantitative (08/30/2025 11:22 AM EDT) Only the most recent of4 resultswithin the time period is included. CMV Quant DNA PCR Negative Negative IU/mL [facility] [phone] Comment: No CMV DNA detected. The quantitative range of this assay is 200 to 1 million IU/mL. Log 10 CMV QN DNA Plasma CANCELED log10 IU/mL [facility] [place] [phone] Comment: Unable to calculate result since non-numeric result obtained for component test. Result canceled by the ancillary. Blood Venous blood / Unknown 08/30/2025 11:22 AM EDT 08/30/2025 Xiang Bass MD LAB BLOOD ORDERABLES Edite d Result - Final Performing Organization Address City/[facility]/ZIP Co de Phone Number [facility] [place] [address] [place] [address] * X-ray Chest PA/Lat (08/08/2025 10:56 AM EDT) Anatomical Region Laterality Modality Body Radiographic Cassie ging Xiang Bass MD IMG XR PROCEDURES Final Re sult * (ABNORMAL) Immature Cells (08/03/2025 10:52 AM EDT) Only the most recent of2 resultswithin the time period is included. Myelocytes Relative 2(H) 0 - 0 % [facility] [place] 08/03/2025 10:5 2 AM EDT 08/03/2025 Xiang Bass MD LAB BLOOD ORDERABLES Final Result Performing Organization Address City/[facility] Co de Phone Number [employer] [facility] [place] [address] [place] [address] * (ABNORMAL) Vitamin B12 (07/26/2025 10:59 AM EDT) Vitamin B-12 >2,000(H) 232 - 1,245 pg/mL [facility] [place] Blood Venous blood / Unknown 07/26/2025 10:59 AM EDT 07/26/2025 Xiang Bass MD LAB BLOOD ORDERABLES Final Result Performing Organization Address City/[facility]/ZIP Co de Phone Number [facility] [place] [address] [place] [address] from Last 3 Months Insurance Medicare Medicare Member Subscriber Plan / Payer (Ef fective 2021-Present) Name:Carline Lee E Relation to Subscriber:Self Name:Carline Lee Payer ID:[id number] (NAIC) Type:Not on file Address: [place] [phone] Medicare Care Teams Section Leader Screen Printing Relationship Specialty Start Date End Date Randal Perkins MD [address], [place] PCP - General 12/09/20
--- OUTSIDE RECORDS SUMMARY | 2025-10-24 13:47 | XMS_ITS | Encounter Summary ---
Author Organization [facility] Address [address] [place] [address] [place] [phone] Phone Care Team Providers Care Plate Glass Installer Helper Name Role Phone Randal Perkins MD Primary Care Provider Encounter Details Date Type Department Care Team (Late st Contact Info) Description 08/24/2019 Procedure Pass [facility], [place] [address] [place] [address] Social History Tobacco Use Types Packs/Day Years [...] documented as of this encounter Care Teams Plate Glass Installer Helper Relationship Specialty Start Date End Date Randal Perkins MD [address] [address] PCP - General 05/29/14 documented as of this encounter Additional Source Comments The information contained in this document represents components of the legal health record. It is not the complete legal health record.[facility]
[2025-10-24 14:29] LABS: Alanine Aminotransferase 17 U/L (0-31); Albumin Level 3.9 g/dL (3.5-5.0); Alkaline Phosphatase 138 U/L (39-117); Anion Gap 14 (12-20); Aspartate Amino Transferase 47 U/L (5-31); Blood Urea Nitrogen 17 mg/dL (9-16); Calcium 8.9 mg/dL (8.4-10.2); Carbon Dioxide 18 mmol/L (22-29); Chloride 113 mmol/L (96-108); Estimated Glomerular Filt Rate 36; Potassium 3.0 mmol/L (3.3-5.1); Sodium 142 mmol/L (135-145); Total Protein 7.4 g/dL (6.5-8.0)
== END 2025-10-24 10:16 | disposition home or self-care (01) ==
LOC: HO.HVNA 10:15
PROVIDERS: Visit Provider Student in an Organized Health Care Education/Training Program
DX: R78.81 Bacteremia (principal); R65.10 Systemic inflammatory response syndrome (SIRS) of non-infectious origin without acute organ dysfunction
CPT/HCPCS: 36415; 80053; 85025; 85652; 86140

== ENCOUNTER 2025-10-31 10:15 | Outpatient (REF) | payer MEDICARE, SELFPAY ==
[2025-10-31 13:16] LABS: Hematocrit 34.3 % (37.0-47.0); Hemoglobin 10.4 g/dl (12.0-16.0); Imm Gran Abs Auto 0.12 X10*3/uL (0.00-0.03); Imm Gran Pct Auto 1.3 % (0.0-0.4); Lymphocytes Absolute Auto 0.5 X10*3/uL (1.2-4.9); MANUAL DIFF FLAG NO; Mean Corpuscular HGB Conc 30.3 g/dl (31.0-35.0); Mean Corpuscular Hemoglobin 31.1 pg (27.0-33.0); Mean Corpuscular Volume 102.7 fL (80.0-98.0); NRBC Abs Auto 0.000 X10*3/uL (0.0-0.012); NRBC Pct Auto 0.0 /100WBC (0.0-0.2); Platelet Count 193 X10*3/uL (160-400); Red Blood Count 3.34 X10*6/uL (4.20-5.50); White Blood Count 8.9 X10*3/uL (4.8-10.8)
[2025-10-31 13:27] LABS: Alanine Aminotransferase 34 U/L (0-31); Albumin Level 4.0 g/dL (3.5-5.0); Alkaline Phosphatase 146 U/L (39-117); Anion Gap 13 (12-20); Aspartate Amino Transferase 55 U/L (5-31); Blood Urea Nitrogen 19 mg/dL (9-16); Calcium 9.0 mg/dL (8.4-10.2); Carbon Dioxide 18 mmol/L (22-29); Chloride 116 mmol/L (96-108); Estimated Glomerular Filt Rate 38; Potassium 5.0 mmol/L (3.3-5.1); Sodium 142 mmol/L (135-145); Total Protein 7.1 g/dL (6.5-8.0)
--- OUTSIDE RECORDS SUMMARY | 2025-10-31 13:31 | XMS_ITS | Encounter Summary ---
Author Organization [employer] [facility] Address [address] [place] [address] Phone Care Team Providers Care Marketing Writer Name Role Phone Randal Perkins MD Primary Care Provider Encounter Details Date Type Department Care Team (Late st Contact Info) Description 08/16/2024 Telephone [facility] Crohns and Colitis [address] [place] [address] Crow Alberto MD 850 [facility] [address] [place] [address] [email or web address] Social History Tobacco Use Types Packs/Day [...] documented as of this encounter Care Teams Marketing Writer Relationship Specialty Start Date End Date Randal Perkins MD [facility] [place] [address] PCP - General 05/29/14 documented as of this encounter Additional Source Comments The information contained in this document represents components of the legal health record. It is not the complete legal health record.[facility]
--- OUTSIDE RECORDS SUMMARY | 2025-10-31 13:31 | XMS_ITS | Encounter Summary ---
Author Organization [facility] Address [address] [facility] [address] [place] [address] Phone Care Team Providers Care School Treasurer Name Role Phone Randal Perkins MD Primary Care Provider Encounter Details Date Type Department Care Team (Late st Contact Info) Description 06/28/2019 Procedure Pass [facility] [address] [place] [address] Social History Tobacco Use Types Packs/Day Years [...] documented as of this encounter Care Teams School Treasurer Relationship Specialty Start Date End Date Randal Perkins MD [address] [address] PCP - General 05/29/14 documented as of this encounter Additional Source Comments The information contained in this document represents components of the legal health record. It is not the complete legal health record.[facility]
--- OUTSIDE RECORDS SUMMARY | 2025-10-31 13:31 | XMS_ITS | Encounter Summary ---
Author Organization [facility] Address [address] [place] [address] Drive [address] [place] [address] Phone Care Team Providers Care Technical Healthcare Consultant Name Role Phone Randal Perkins MD Primary Care Provider Encounter Details Date Type Department Care Team (Late st Contact Info) Description 01/21/2022 Procedure Pass [facility] [address] [place] [address] Social History Tobacco Use Types Packs/Day Years [...] documented as of this encounter Care Teams Technical Healthcare Consultant Relationship Specialty Start Date End Date Randal Perkins MD [address] [address] PCP - General 05/29/14 documented as of this encounter Additional Source Comments The information contained in this document represents components of the legal health record. It is not the complete legal health record.[facility]
--- OUTSIDE RECORDS SUMMARY | 2025-10-31 13:31 | XMS_ITS | Clinical Summary ---
Author Organization [address] [place] [address] [place] [phone] Phone Care Team Providers Care Fish Receiver Name Role Phone Randal Perkins MD Primary Care Provider Allergies Active Allergy [...] 1 (one) time each day. 4 Active hydroCHLOROthia zide (HYDRODIURIL) 25 mg tablet Take 1 tablet (25 mg total) by mouth 1 (one) time each day. 5 07/17/20 26 Active amoxicillin (AMOXIL) 500 mg capsule Take by mouth. Activ e predniSONE (DELTASONE) 5 mg tablet Take 1 [...] total) by mouth every other day. Active cholecalciferol (VITAMIN D-3) 1,250 mcg (50,000 unit) capsule Take 1 capsule (50,000 Units total) by mouth 1 (one) time per week. Active fluticasone propionate (FLONASE) 50 mcg/actuation nasal spray Administer 1 spray into each nostril 1 (one) time each day. Shake gently. Before first use, prime pump. After use, clean tip and replace cap. Active Active Problems Problem Noted Date Diagnosed [...] (heart failure with re duced ejection fraction) (CMS/HCC V24, CMS/HCC V28) 09/25/2025 Overview (09/25/2025): echocardiogram on 06/26/2025 [...] is going to be scheduled with her technical support director to have a kidney biopsy in which [...] recipient 09/25/2025 Hyperthyroidism 09/25/2025 Paroxysmal atrial fibrillation ([facility] V24, CMS /[facility] V28) 09/25/2025 Overview (09/25/2025): s/p ablation with [...] Description 09/25/2025 1:40 PM EDT Office Visit [facility] [address] [facility] [address] [place] [phone] Michele Malagon NP Renal transplant recipient (Primary Dx); SOB (shortness of breath); HFrEF (heart failure with reduced ejection fraction) (CMS/HCC V24, CMS/HCC V28); Paroxysmal atrial fibrillation (CMS/HCC V24, CMS/HCC V28); Primary hypertension 09/25/2025 Telephone [facility] [address] [facility] [address] [place] [phone] Michele Malagon NP 09/20/2025 Telephone [facility] [address] [place] [address] Kamille Shetty MD from Last 3 Months [...] DX:H/O cesa rean section Chronic renal impairment DX:Toll Lineman bernabe renal impairment Crohn's disease (CMS/HCC V24, [...] 06/06/2024, 05/25/2024, Additional history exists COVID-19 Vaccine ( season) 2025 09/17/2023, 09/25/2022, 04/06/2022, Additional history [...] topic Insurance [employer] MEDICARE Care Teams Fish Receiver Relationship Specialty Start Date End Date Randal Perkins MD [address] [place] [address] PCP - General Internal Medicine 07/07/22
--- OUTSIDE RECORDS SUMMARY | 2025-10-31 13:31 | XMS_ITS | Clinical Summary ---
Author Organization [facility] Address 100 [place] [address] Care Team Providers Care Drafting Clerk Name Role Phone Rodrigo Perkins MD Primary Care Provider [phone] Encounters Date Type Department Care Team Description 09/13/2025 11:00 PM EDT Lab [facility] Transplant [facility] & [facility] [address] [facility] [address] [place] [phone] System, Provider Not In Kidney replaced [...] Final Result from Last 3 Months Insurance [facility] MEDICARE [facility] MEDICARE Care Teams Drafting Clerk Relationship Specialty Start Date End Date Rodrigo Perkins MD [address] [place] [address] PCP - General Internal Medicine 08/29/25
--- OUTSIDE RECORDS SUMMARY | 2025-10-31 13:31 | XMS_ITS | Encounter Summary ---
Author Organization [facility] Address [address] [place] [address] Care Team Providers Care Naval Police Coxswain Name Role Phone System, Provider Not In Primary Care Provider Un available Rodrigo Perkins MD Primary Care Provider + [phone] Rodrigo Perkins MD Primary Care Provider + [phone] Encounter Details Date Type Department Care Team (Late st Contact Info) Description 07/19/2023 Scanned Document [facility] Trans[facility] & [email or web address] Liver Center 85 [facility] [address] [place] [phone] Provider, External, [address] [place] [address] Social History Tobacco Use Types Packs/Day Years [...] on filedocumented in this encounter Care Teams [employer] Coxswain Relationship Specialty Start Date End Date System, Provider Not In PCP - General 05/23/25 05/23/25 Rodrigo Perkins MD [address] [place] [address] PCP - General Internal Medicine 04/29/25 05/22/25 Rodrigo Perkins MD [address] [place] [address] PCP - General Internal Medicine 08/29/25 documented as of this encounter
--- OUTSIDE RECORDS SUMMARY | 2025-10-31 13:31 | XMS_ITS | Patient Health Record ---
Author Organization [facility] Address [address] [facility] [address] [place] [address] Care Team Providers Care Boiler Inspector Name Role Phone Randal Perkins Primary Care Provider RICARDO Rojas Unavailable [phone] Allergies Allergen (clinical drug ingredient) Drug/Non Drug Allergy documented on EMR Reaction Allergy Type Onset Date Status metronidazole Flagyl rash Drug Allergy Act estefania cephalexin Cephalexin diarrhea Drug Allergy Activ e cefazolin Cefazolin diarrhea Drug Allergy Active Reason For Referral No Information Medications Medication SIG (Take, Route, Frequency, Duration) Notes Start Date End Date Status Amiodarone HCl 200 MG 1 tablet Orally Once a day Active Lisinopril 10 MG 1 tablet Orally Once a day Not-Taking Skyrizi every 8 weeks Active Vagifem 10 MCG 1 tablet Vaginal Two times a Week Active NIFEdipine ER 30 MG 1 tablet on an empty stomach Orally Once a day Active One A Day Women 50 Plus - as directed Orally Active Metoprolol Succinate ER 25 MG 1 tablet Orally Once a day Active Cyanocobalamin 1000 MCG/ML 1 mL Injection every 28 days Active Levothyroxine Sodium 200 MCG 1 tablet in the morning on an empty stomach Orally Once a day 225MCG Active Calcium 500 MG 1 tablet with meals Orally Twice a day Active Eliquis 2.5 MG as directed Orally Active Atorvastatin Calcium 20 MG 1 tablet Orally Once a day Active Problems Problem Type SNOMED Code ICD Code Onset Dates Problem Status W/U Status Risk Notes Problem Acquired hammer toe of right foot (2930910048154 105) Hammer toe of right foot (M20.41) Active confirmed Plan Of Treatment No Information Insurance Providers Payer Name Payer Address Payer Phone Subscriber Number Group Number Insured Name Patient Relationship to Insured Coverage Start Date Coverage End Date [employer] Medicare [id number] [address] [address] [place] [phone] [id number] Calrine Lee Self - patient is the insured Medical (General) History Medical History History ICD Code anemia breast cancer lumpectomy and right negat estefania nodules chronic renal impairment due to renal stones and ? 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 heart failure with reduced ejection frac tion hyperlipidemia hypertension hypothyroidism multiple thyroid nodules nephrolithiasis damaged left kidney calc ium oxalate stones osteoporosis PAF (paroxysmal atrial fibrillation) post surgical hypothyroidism pulmonary edema minimal irregularities i n all coronary arteries steatosis of liver urosepsis and recurrent cystitis vitamin B12 deficiency Atrial fibrillation + COVID 01/2023 COVID vaccinated X 3 (PC[facility] [place]) Surgical History Surgery Date(Month/Year) right lumpectomy 1998 cholecystectomy 1981 1975 total thyroidectomy- negative cancer 201 8 Hospitalization History Reason Date(Month/Year) Afib 08/2023 Factor V- DVT Crohn's disease 2006 Crohn's disease 1986 cholecystectomy 1982 (boy) 1975
--- OUTSIDE RECORDS SUMMARY | 2025-10-31 13:31 | XMS_ITS | Encounter Summary ---
Author Organization [facility] Address [address] [place] [address] Drive [address] [place] [address] Phone Care Team Providers Care Telegraph Equipment Maintainer Name Role Phone Randal Perkins MD Primary Care Provider Encounter Details Date Type Department Care Team (Late st Contact Info) Description 06/10/2022 Procedure Pass [facility] [address] [place] [address] Social History Tobacco Use Types Packs/Day Years [...] documented as of this encounter Care Teams Telegraph Equipment Maintainer Relationship Specialty Start Date End Date Randal Perkins MD [address] [address] PCP - General 05/29/14 documented as of this encounter Additional Source Comments The information contained in this document represents components of the legal health record. It is not the complete legal health record.[facility]
--- OUTSIDE RECORDS SUMMARY | 2025-10-31 13:31 | XMS_ITS | Encounter Summary ---
Author Organization [facility] Address [address] [place] [address] [place] [address] Phone Care Team Providers Care Underground Truck Operator Name Role Phone Randal Perkins MD Primary Care Provider Encounter Details Date Type Department Care Team (Late st Contact Info) Description 08/24/2019 Procedure Pass [facility] MR Imaging, [place] [address] [place] [address] Social History Tobacco Use Types Packs/Day Years [...] documented as of this encounter Care Teams Underground Truck Operator Relationship Specialty Start Date End Date Randal Perkins MD [address] [address] PCP - General 05/29/14 documented as of this encounter Additional Source Comments The information contained in this document represents components of the legal health record. It is not the complete legal health record.[facility]
--- OUTSIDE RECORDS SUMMARY | 2025-10-31 13:31 | XMS_ITS | Clinical Summary ---
Author Organization [facility] Address [address] [facility] [address] [place] [address] Phone Care Team Providers Care Tin Dipper Name Role Phone Benny Akbar MD Primary [...] Department Care Team Description 10/11/2025 Orders Only [facility] Crohns and Colitis [address] [place] [address] Crow Rojas MD 09/30/2025 Orders Only [facility] [address] [facility] [place] [address] Katty Alan FNP from Last 3 Months [...] ecorded Are you denied basic needs [facility] as food, clothing, or medical care? No [...] EDT) SODIUM 139 133 - 146 mmol/L [facility] POTASSIUM 4.4 3.3 - 5.1 mmol/L [facility] CHLORIDE 96 96 - 108 mmol/L [facility] CO2 22 21 - 35 mmol/L [facility] BUN 54(H) 6 - 19 mg/dL [facility] CREATININE 4.90(H) 0.5 - 1.5 mg/dL [facility] GLUCOSE 103(H) 70 - 99 mg/dL [facility] ALBUMIN 2.7(L) 3.9 - 4.8 g/dL [facility] TOTAL PROTEIN 5.3(L) 6.5 - 8.0 g/dL [facility] CALCIUM 7.4(L) 8.4 - 10.3 mg/dL [facility] ALKALINE PHOSPHATASE 236(H) 39 - 117 U/L [facility] TOTAL BILIRUBIN 0.4 0.0 - 1.2 mg/dL [facility] AST 24 0 - 37 U/L [facility] ALT 19 0 - 40 U/L [facility] GLOBULIN 2.6 1 - 4.8 g/dL [facility] EGFR 9(L) >59 mL/min/1.7 3m2 [facility] Comment:Estimated glomerular filtration rate calculated using the CKD-EPI refit equation. ANION GAP 25(H) 10 - 20 mmol/L [facility] Blood 07/18/2024 1:12 PM EDT 07/18/2024 1:23 PM EDT María Aguayo [facility] LAB BLOOD BKR ORDERABLES Final Result [facility] [address] [place] [address] * Hepatitis C antibody, qualitative ([facility], F, DFCI, NWAS Only) (11/13/2015 11:54 AM EST) HCV Negative Negative [facility]ATOR[facility] 11/13/2015 11:5 4 AM EST 11/13/2015 12:03 PM EST Crow Rojas MD LAB BLOOD BKR ORDERABLES Fi nal Result [facility] [address] [place] [address] * ENDOSCOPY, COLON (01/26/2014 10:21 AM EST) 01/26/2014 10:2 1 AM EST Narrative 02/25/2014 11:31 AM EDT Report Number: [id number] Report Status: Signed Type: Colonoscopy Date: 01/26/2014 [...] - 01/26/2014 10:21 AM EST Report Number: [id number] Report Status:Signed Type: Colonoscopy Date: 01/26/2014 10:21 [...] Most Recently Relevant to Health Maintenance Insurance [facility] MEDICARE REPLACEMENT [facility] MEDICARE REPLACEMENT [facility] MEDICARE [facility]PLACEMENT [facility] MEDICARE REPLACEMENT [facility] MEDICARE REPLACEMENT [place] [id number] [facility] MEDICARE REPLACEMENT [place] [id number] [facility] MEDICARE REPLACEMENT [facility] MEDICARE REPLACEMENT [place] [id number] [facility] MEDICARE REPLACEMENT [place] [id number] Care Teams Tin Dipper Relationship Specialty Start Date End Date Benny Akbar MD [facility] [address] PCP - General 05/29/14 Additional Source Comments The information contained in this document represents components of the legal health record. It is not the complete legal health record.[facility]
--- OUTSIDE RECORDS SUMMARY | 2025-10-31 13:32 | XMS_ITS | Encounter Summary ---
Author Organization [employer] [facility] Address [address] [place] [address] Phone Care Team Providers Care Refinery Operator Light Ends Recovery Name Role Phone Randal Perkins MD Primary Care Provider Encounter Details Date Type Department Care Team (Late st Contact Info) Description 05/12/[address] [facility] Crohns and Colitis [address] [place] [address] Crow Alberto MD 850 [facility] [address] [place] [address] [email or web address] Social History Tobacco Use Types Packs/Day [...] documented as of this encounter Care Teams Refinery Operator Light Ends Recovery Relationship Specialty Start Date End Date Randal Perkins MD [facility] [address] [address] PCP - General 05/29/14 documented as of this encounter Additional Source Comments The information contained in this document represents components of the legal health record. It is not the complete legal health record.[facility]
--- OUTSIDE RECORDS SUMMARY | 2025-10-31 13:32 | XMS_ITS | Encounter Summary ---
Author Organization [facility] Address [address] [place] [address] Phone Care Team Providers Care Marker Delivery Name Role Phone Randal Perkins MD Primary Care Provider Encounter Details Date Type Department Care Team (Late st Contact Info) Description 11/30/2017 Procedure Pass [facility] [address] [place] [address] Social History Tobacco Use Types Packs/Day Years [...] documented as of this encounter Care Teams Marker Delivery Relationship Specialty Start Date End Date Randal Perkins MD [facility] [address] [address] PCP - General 05/29/14 documented as of this encounter Additional Source Comments The information contained in this document represents components of the legal health record. It is not the complete legal health record.[facility]
--- OUTSIDE RECORDS SUMMARY | 2025-10-31 13:32 | XMS_ITS | Encounter Summary ---
Author Organization [facility] Address [address] [place] [address] [place] [address] Phone Care Team Providers Care Marine Fisheries Technician Name Role Phone Randal Perkins MD Primary Care Provider Reason for Referral * MRI/CAT Scan - Closed Specialty Diagnoses / Procedures Referred By Ariel sales Referred To Contact Procedures CT Abdomen/Pelvis Outside (No Interpretation) Crow Alberto MD Phone: tel: fax: mailto:[email or web address] Referral ID Status Reason Start Date Expiration Date Visits Re quested Visits Authorized [id number] Closed 11/30/2017 11/30/2018 1 1 Encounter Details Date Type Department Care Team (Late st Contact Info) Description 11/30/2017 Transcribe Orders [facility] [address] [place] [address] Katia Silvestre [address] [place] [phone] [email or web address] Social History Tobacco Use Types [...] documented as of this encounter Care Teams Marine Fisheries Technician Relationship Specialty Start Date End Date Randal Perkins MD [facility] [address] PCP - General 05/29/14 documented as of this encounter Additional Source Comments The information contained in this document represents components of the legal health record. It is not the complete legal health record.[facility]
--- OUTSIDE RECORDS SUMMARY | 2025-10-31 13:32 | XMS_ITS | Encounter Summary ---
Author Organization [facility] Address [address] [place] [address] Phone Care Team Providers Care Automatic Pad Making Machine Operator Name Role Phone Randal Perkins MD Primary Care Provider Encounter Details Date Type Department Care Team (Late st Contact Info) Description 05/10/2024 Telephone [facility] Crohns and Colitis [address] [place] [address] Crow Alberto MD 850 [facility] [address] [place] [address] [email or web address] Social History Tobacco Use Types [...] documented as of this encounter Care Teams Automatic Pad Making Machine Operator Relationship Specialty Start Date End Date Randal Perkins MD [facility] [address] [address] PCP - General 05/29/14 documented as of this encounter Additional Source Comments The information contained in this document represents components of the legal health record. It is not the complete legal health record.[facility]
--- OUTSIDE RECORDS SUMMARY | 2025-10-31 13:32 | XMS_ITS | Encounter Summary ---
Author Organization [facility] Address [address] [place] [address] Phone Care Team Providers Care Molder Meat Name Role Phone Randal Perkins MD Primary Care Provider Encounter Details Date Type Department Care Team (Late st Contact Info) Description 08/13/2023 Telephone [facility] Crohns and Colitis [address] [place] [address] Crow Alberto MD 850 [facility] [address] [place] [address] [email or web address] Social History Tobacco Use Types [...] documented as of this encounter Care Teams Molder Meat Relationship Specialty Start Date End Date Randal Perkins MD [facility] [address] PCP - General 05/29/14 documented as of this encounter Additional Source Comments The information contained in this document represents components of the legal health record. It is not the complete legal health record.[facility]
--- OUTSIDE RECORDS SUMMARY | 2025-10-31 13:32 | XMS_ITS | Encounter Summary ---
Author Organization [facility] Address [address] [place] [address] Phone Care Team Providers Care Quiller Tender Name Role Phone Randal Perkins MD Primary Care Provider Encounter Details Date Type Department Care Team (Late st Contact Info) Description 09/18/2020 Procedure Pass [facility] [address] [place] [address] Social History Tobacco Use Types Packs/Day Years [...] documented as of this encounter Care Teams Quiller Tender Relationship Specialty Start Date End Date Randal Perkins MD [address] [address] PCP - General 05/29/14 documented as of this encounter Additional Source Comments The information contained in this document represents components of the legal health record. It is not the complete legal health record.[facility]
--- OUTSIDE RECORDS SUMMARY | 2025-10-31 13:33 | XMS_ITS | Encounter Summary ---
Author Organization [employer] [facility] Address [address] [place] [address] Phone Care Team Providers Care Airport Utility Worker Name Role Phone Randal Perkins MD Primary Care Provider Encounter Details Date Type Department Care Team (Late st Contact Info) Description 07/14/2024 Telephone [facility] Crohns and Colitis [address] [place] [address] Crow Alberto MD [address] [facility] [address] [place] [address] [email or web address] Social History Tobacco Use Types Packs/Day Years [...] documented as of this encounter Care Teams Airport Utility Worker Relationship Specialty Start Date End Date Randal Perkins MD [facility] [place] [address] PCP - General 05/29/14 documented as of this encounter Additional Source Comments The information contained in this document represents components of the legal health record. It is not the complete legal health record.[facility]
--- OUTSIDE RECORDS SUMMARY | 2025-10-31 13:33 | XMS_ITS | Encounter Summary ---
Author Organization [employer] [facility] Address [address] [place] [address] Phone Care Team Providers Care Manual Arts Therapist Name Role Phone Randal Perkins MD Primary Care Provider Encounter Details Date Type Department Care Team (Late st Contact Info) Description 05/26/2024 Procedure [facility] [address] [place] [address] Social History Tobacco Use Types Packs/Day Years [...] documented as of this encounter Care Teams Manual Arts Therapist Relationship Specialty Start Date End Date Randal Perkins MD [address] [address] PCP - General 05/29/14 documented as of this encounter Additional Source Comments The information contained in this document represents components of the legal health record. It is not the complete legal health record.[facility]
--- OUTSIDE RECORDS SUMMARY | 2025-10-31 13:33 | XMS_ITS | Encounter Summary ---
Author Organization [facility] Address [address] [place] [address] Phone Care Team Providers Care Coke Drawer Name Role Phone Randal Perkins MD Primary Care Provider Encounter Details Date Type Department Care Team (Late st Contact Info) Description 11/28/2018 [employer] Encounter [facility] Crohns and Colitis [address] [place] [address] Tomasz Walden NP [address] [address] [email or web address] Social History Tobacco Use Types Packs/Day Years [...] documented as of this encounter Care Teams Coke Drawer Relationship Specialty Start Date End Date Randal Perkins MD [address] [address] PCP - General 05/29/14 documented as of this encounter Additional Source Comments The information contained in this document represents components of the legal health record. It is not the complete legal health record.[facility]
== END 2025-10-31 10:16 | disposition home or self-care (01) ==
LOC: HO.HVNA 10:15
PROVIDERS: PCP Internal Medicine; Visit Provider Student in an Organized Health Care Education/Training Program
DX: R78.81 Bacteremia (principal); R65.10 Systemic inflammatory response syndrome (SIRS) of non-infectious origin without acute organ dysfunction; B95.4 Other streptococcus as the cause of diseases classified elsewhere
CPT/HCPCS: 36415; 80053; 85025; 85652; 86140

== ENCOUNTER 2025-11-07 12:18 | Outpatient (REF) | payer MEDICARE, SELFPAY ==
[2025-11-07 12:24] LABS: MANUAL DIFF FLAG NO
[2025-11-07 12:29] LABS: Hematocrit 34.8 % (37.0-47.0); Hemoglobin 10.5 g/dl (12.0-16.0); Imm Gran Abs Auto 0.16 X10*3/uL (0.00-0.03); Imm Gran Pct Auto 2.1 % (0.0-0.4); Lymphocytes Absolute Auto 0.4 X10*3/uL (1.2-4.9); Mean Corpuscular HGB Conc 30.2 g/dl (31.0-35.0); Mean Corpuscular Hemoglobin 31.3 pg (27.0-33.0); Mean Corpuscular Volume 103.9 fL (80.0-98.0); NRBC Abs Auto 0.000 X10*3/uL (0.0-0.012); NRBC Pct Auto 0.0 /100WBC (0.0-0.2); Platelet Count 185 X10*3/uL (160-400); Red Blood Count 3.35 X10*6/uL (4.20-5.50); White Blood Count 7.8 X10*3/uL (4.8-10.8)
[2025-11-07 13:47] LABS: Alanine Aminotransferase 26 U/L (0-31); Albumin Level 3.9 g/dL (3.5-5.0); Alkaline Phosphatase 139 U/L (39-117); Anion Gap 11 (12-20); Aspartate Amino Transferase 44 U/L (5-31); Blood Urea Nitrogen 20 mg/dL (9-16); Calcium 8.8 mg/dL (8.4-10.2); Carbon Dioxide 19 mmol/L (22-29); Chloride 117 mmol/L (96-108); Estimated Glomerular Filt Rate 37; Potassium 3.8 mmol/L (3.3-5.1); Sodium 143 mmol/L (135-145); Total Protein 7.0 g/dL (6.5-8.0)
== END 2025-11-07 12:19 | disposition home or self-care (01) ==
LOC: HO.HVNA 12:18
PROVIDERS: Visit Provider Internal Medicine
DX: B99.9 Unspecified infectious disease (principal)
CPT/HCPCS: 36415; 80053; 85025; 85652; 86140

== ENCOUNTER 2025-11-14 09:40 | Outpatient (REF) | payer MEDICARE, SELFPAY ==
--- OUTSIDE RECORDS SUMMARY | 2025-11-08 23:59 | XMS_ITS | Continuity of Care Document ---
Author Organization [facility] Address [address] [place] [address]- Care Team Providers Care Banking Services Advisor Name Role Phone Maddie SEARS, Randal Robbins Primary Care Physician Encounter [facility] Date(s): 10/09/25 - 11/08/25 [facility] [address] [place] [address]- Attending Physician: Celso Miles Admitting Physician: Celso Miles Referring Physician: Celso Miles Encounter Type: Triage Allergies, Adverse Reactions, Alerts Substance Criticality Severity Reaction Reaction Severity Status cephalexin Diarrhea Active Flagyl Rash Active Bactrim WBC count problem Ac tive Valcyte WBC count issue Acti ve metroNIDAZOLE Eruption Active ceFAZolin Diarrhea Active Immunizations Given and Recorded Vaccine Date Status Refusal Reason influenza virus vaccine, inactivated 09/19/25 Maykel rded influenza virus vaccine, inactivated 08/27/23 Maykel rded influenza virus vaccine, inactivated 09/11/22 Maykel rded influenza virus vaccine, inactivated 1 09/24/21 Gi dion influenza virus vaccine, inactivated 09/17/20 Give n influenza virus vaccine, inactivated 2 09/15/19 Gi dion influenza virus vaccine, inactivated 09/23/18 Give n influenza virus vaccine, inactivated 09/09/17 Maykel rded influenza virus vaccine, inactivated 09/28/16 Maykel rded influenza virus vaccine, inactivated 09/04/15 Give n influenza virus vaccine, inactivated 3 09/07/14 Re corded influenza virus vaccine, inactivated 08/28/13 Give n influenza virus vaccine, inactivated 4 09/08/12 Gi dion influenza virus vaccine, inactivated 5 10/01/11 Gi dion influenza virus vaccine, inactivated 6 09/29/10 Gi dion Influenza Virus Vaccine (oldterm) 09/12/24 Recorde d Influenza Virus Vaccine (oldterm) 7 09/21/08 Given Influenza Virus Vaccine (oldterm) 8 10/11/07 Given Influenza Virus Vaccine (oldterm) 9 12/06/06 Given SARS-CoV-2(COVID-19)mRNA-LNP vac(pbn978) 09/17/23 Recorded pneumococcal 20-valent conjugate vaccine 05/04/23 Given [id number] 12y+ bivalent booster vax 09/25/22 Recorded tetanus-diphtheria toxoids (Td) 04/30/22 Given tetanus-diphtheria toxoids (Td) 10 03/29/05 Given SARS-CoV-2 mRNA ([id number]) vax 04/06/22 Recorded SARS-CoV-2 (COVID-19) mRNA BNT-162b2 vac 08/19/21 Recorded SARS-CoV-2 (COVID-19) mRNA BNT-162b2 vac 01/27/21 Recorded SARS-CoV-2 (COVID-19) mRNA BNT-162b2 vac 01/20/21 Recorded SARS-CoV-2 (COVID-19) mRNA BNT-162b2 vac 01/03/21 Recorded SARS-CoV-2 (COVID-19) mRNA BNT-162b2 vac 12/30/20 Recorded Zoster Vaccine Live 08/2019 Recorded Zoster Vaccine Live 11/04/09 Given zoster vaccine, inactivated 08/26/19 Recorded zoster vaccine, inactivated 03/24/19 Recorded pneumococcal 13-valent vaccine 05/29/15 Recorded tetanus/diphtheria/pertussis, acel(Tdap) 04/18/13 Given pneumococcal 23-valent vaccine 10/14/12 Given Influenza Vaccine (oldterm) 12 09/24/09 Given Pneumococcal Poly (PPV23) (oldterm) 11/11/04 Given 1Result Comment: [id number] 2Result Comment: [id number] given w/out incident okd by 3Result Comment: [10/15/2014] [facility] 4Admin Note: MANUFACTURE BIOMEDICAL VIS SHEET GIVEN (06/23/2011) GIVEN W/O INCIDENT 5Admin Note: FLULAVAL 6Admin Note: given without incident and handout given 7Admin Note: sonofi-pt meets criteria/no incedent/pt denies allergy to flu injection. pt also statesno flu symptoms 8Admin Note: PT DECLINED 9Admin Note: PT DECLINED 10Admin Note: [facility] 11Result Comment: Done at [facility] 12Admin Note: given w/o incident Medications amoxicillin 500 mg oral capsule 4 capsule = 2,000 mg, By Mouth, Once, take 2 grams (4 tablets) once 1 hour prior to dental procedure, # 4 capsule, 0 Refills, Soft Stop, 01/08/25 4:01:00 PM EST, [facility]/pharmacy #[id number], Partial fill upon patient request if the prescription is for a schedule II opioid drug., 157.48, cm, 01/05/25 12:34:00EST, Height, 48.7, kg, 01/05/25 9:05:00 EST, Dry Weight Start Date: 01/08/25 Status: Ordered Medication Dispense Status: Completed Quantity: 4.0 Unit: capsule Total Allowed Fills: 1 Fills Dispensed: 0 belatacept See Instructions, 5 mg/kg IV Infusion every 4 weeks, 0 Refills, Maintenance, 10/10/25 8:36:00 AM EST, Partial fill upon patient request if the prescription is for a schedule II opioid drug. Start Date: 10/10/25 Status: Ordered Medication Dispense Status: Completed Total Allowed Fills: 1 Fills Dispensed: 0 calcium carbonate 500 mg (200 mg elemental calcium) oral tablet, chewable 1,000 mg, 2, tablet, Chew, 3 times a day, # 180 tablet, Refills 3, Tot. Refills 3, Maintenance, 04/04/25 9:40:00 AM EDT, Route to Pharmacy Electronically, [facility], Partial fill uponpatient request if the prescription is for a schedule II opioid drug., 157.48, cm, 03/26/25 10:07:00 EDT, Height, 50.5, kg, 03/26/25 9:25:00 EDT, Dry Weight Start Date: 04/04/25 Status: Ordered Medication Dispense Status: Completed Quantity: 180.0 Unit: tablet Total Allowed Fills: 4 Fills Dispensed: 0 Ceftriaxone 2 Gm, IV Infusion, Daily, Maintenance, 10/27/25 8:53:00 AM EST Start Date: 10/27/25 Stop Date: 11/21/25 Status: Ordered Medication Dispense Status: Completed Total Allowed Fills: 1 Fills Dispensed: 0 ceftriaxone 2 gm injectable powder for injection = 2 Gm, IVPB, Every 24 hours, 0 Refills, Maintenance, 10/16/25 1:06:00 PM EST, Injection, Partial fill upon patient request if the prescription is for a schedule II opioid drug. Start Date: 10/16/25 Stop Date: 11/21/25 Status: Ordered Medication Dispense Status: Completed Total Allowed Fills: 1 Fills Dispensed: 0 cholestyramine 4 g/5.7 g oral powder for reconstitution See Instructions, MIX 1 SCOOP IN 2 TO 6 OZ OF WATER, NON-CARBONATED DRINK SOUPOR PULPY FRUIT. STIR WELL AND DRINK., # 239.4 Gm, 0 Refills, Maintenance, 04/04/25 9:02:00 AM EDT, [facility] STORE [id number], 157.48,cm, 03/26/25 10:07:00 EDT, Height, 50.5, kg, 03/26/25 9:25:00 EDT, Dry Weight Start Date: 04/04/25 Status: Ordered Medication Dispense Status: Completed Quantity: 239.4 Unit: g Total Allowed Fills: 1 Fills Dispensed: 0 Eliquis 2.5 mg oral tablet 1 tablet, By Mouth, 2 times a day, # 180 tablet, 3 Refills, Maintenance, 10/23/25 12:45:00 PM EST, [facility]/pharmacy #[id number], 158, cm, 10/16/25 7:29:00 EST, Height, 52.4, kg, 10/11/25 12:16:00 EST, Dry Weight Start Date: 10/23/25 Status: Ordered Medication Dispense Status: Completed Quantity: 180.0 Unit: tablet Total Allowed Fills: 4 Fills Dispensed: 0 Imodium Capsule 2 mg, By Mouth, Daily, Refills 0, Maintenance, 03/26/25 9:31:00 AM EDT, Partial fill upon patient request if the prescription is for a schedule II opioid drug. Start Date: 03/26/25 Status: Ordered Medication Dispense Status: Completed Total Allowed Fills: 1 Fills Dispensed: 0 Insulin Syringe, BD Ultra-Fine 1 cc 31 G x 8 mm (5/16in) See Instructions, # 10 each, Refills 3, Tot. Refills 3, Maintenance, To inject Procrit once a week,01/08/25 10:41:00 AM EST, Supply, 157.48, cm, 01/05/25 12:34:00 EST, Height, 48.7, kg, 01/05/25 9:05:00 EST, Dry Weight Start Date: 01/08/25 Status: Ordered Medication Dispense Status: Completed Quantity: 10.0 Unit: each Total Allowed Fills: 4 Fills Dispensed: 0 lidocaine 4% patch Topically, 2 times a day, 0 Refills, Maintenance, 10/27/25 8:54:00 AM EST, Partial fill upon patient request if the prescription is for a schedule II opioid drug. Start Date: 10/27/25 Status: Ordered Medication Dispense Status: Completed Total Allowed Fills: 1 Fills Dispensed: 0 LORazepam 0.5 mg oral tablet 1 tablet = 0.5 mg, By Mouth, Daily, prn anxiety, # 30 tablet, 0 Refills, Maintenance, 09/27/25 1:00:00 PM EDT, [facility]/pharmacy #[id number], Partial fill upon patient request if the prescription is for a schedule II opioid drug., 158, cm, 09/27/25 11:42:00 EDT, Height, 52.5, kg, 09/21/25 14:40:00 EDT, Dry Weight Start Date: 09/27/25 Status: Ordered Medication Dispense Status: Completed Quantity: 30.0 Unit: tablet Total Allowed Fills: 1 Fills Dispensed: 0 metoprolol 100 mg oral tablet, extended release 100 mg, 1, tablet, By Mouth, Daily, # 90 tablet, Refills 0, Tot. Refills 0, Maintenance, 04/21/24 11:39:00 AM EDT, Route to Pharmacy Electronically, [facility], Partial fill upon patientrequest if the prescription is for a schedule II opioid drug., 157, cm, 04/21/24 11:31:00 EDT, Height, 57.8, kg, 04/18/24 10:06:00 EDT, Dry Weight Start Date: 04/21/24 Stop Date: 07/20/24 Status: Ordered Medication Dispense Status: Completed Quantity: 90.0 Unit: tablet Total Allowed Fills: 1 Fills Dispensed: 0 predniSONE 5 mg oral tablet 1 tablet = 5 mg, By Mouth, Daily, # 30 tablet, 3 Refills, Maintenance, 04/17/25 2:19:00 PM EDT, Tablet, [facility]/pharmacy #[id number], Partial fill upon patient request if the prescription is for a schedule II opioid drug., 157.48, cm, 04/12/25 9:56:00 EDT, Height, 52.1, kg, 04/12/25 8:23:00 EDT, Dry Weight Start Date: 04/17/25 Status: Ordered Medication Dispense Status: Completed Quantity: 30.0 Unit: tablet Total Allowed Fills: 4 Fills Dispensed: 0 SilvaSorb 1 applicator, Topically, Every other day, 0 Refills, Maintenance, 10/16/25 1:07:00 PM EST, Gel, Partial fill upon patient request if the prescription is for a schedule II opioid drug. Start Date: 10/16/25 Status: Ordered Medication Dispense Status: Completed Total Allowed Fills: 1 Fills Dispensed: 0 Synthroid 0.05 mg oral tablet 1 tablet = 50 mcg, By Mouth, Every Wednesday, Wednesday and Wednesday, # 39 tablet, 3 Refills, Maintenance, 09/20/25 12:28:00 PM EDT, [id number], 157.48, cm, 08/31/25 10:08:00 EDT, Height, 53.4, kg, 08/31/25 7:58:00 EDT, Dry Weight Start Date: 09/20/25 Stop Date: 06/24/26 Status: Ordered Medication Dispense Status: Completed Quantity: 39.0 Unit: tablet Total Allowed Fills: 1 Fills Dispensed: 0 Synthroid 0.2 mg oral tablet 1 tablet = 200 mcg, By Mouth, Daily, # 90 tablet, 3 Refills, Maintenance, 09/27/25 12:08:00 PM EDT,Tablet, Partial fill upon patient request if the prescription is for a schedule II opioid drug. Start Date: 09/27/25 Status: Ordered Medication Dispense Status: Completed Quantity: 90.0 Unit: tablet Total Allowed Fills: 4 Fills Dispensed: 0 torsemide 5 mg oral tablet 2 tablet = 10 mg, By Mouth, Daily, # 60 tablet, 0 Refills, Maintenance, 09/27/25 12:19:00 PM EDT Start Date: 09/27/25 Status: Ordered Medication Dispense Status: Completed Quantity: 60.0 Unit: tablet Total Allowed Fills: 1 Fills Dispensed: 0 Vitamin A Daily, 0 Refills, Maintenance, 10/10/25 8:35:00 AM EST, Partial fill upon patient request if the prescription is for a schedule II opioid drug. Start Date: 10/10/25 Status: Ordered Medication Dispense Status: Completed Total Allowed Fills: 1 Fills Dispensed: 0 Problem List Condition Confirmation Course Effective Dates Status H ealth Status Informant Acute hyperkalemia Confirmed 04/19/24 Active Anemia Confirmed Active Bacteremia due to Streptococcus Mutans group Confirmed 10/16/25 Active CA - Breast cancer lumpectomy and RT neg nodes Confirmed 1996 Active section Confirmed Active Cholecystectomy Confirmed 1980 Active Chronic renal impairment due to renal stones and ? 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 Confirmed Active Osteoporosis Confirmed Active PAF (paroxysmal atrial fibrillation) ablation FEBRUARY 2024 4 Confirmed Active Postsurgical hypothyroidism Confirmed Active Pulmonary edema minimal irregularities in all coronary arteries LVEF 35 % nonischemic cardiomyoapthy Confirmed 09/04/23 Active Steatosis of liver Confirmed Active Urosepsis and recurrent cystitis Confirmed 03/24/08 Active Vitamin B12 deficiency [facility] 3From: Katherine SEARS(Hem/Onc), Felix Head To: Maddie SEARS, Randal Robbins; Sent: 11/16/2016 11:28:20 Subject: RE: anticoagulation yes. FYI I d/c the warfarin 5 days before the surgery and then start the Lovenox 4 days before. Endit 24 hrs prior to surgery. Then 24 hrs post op restart Lovenox and Coumadin. Overlap for 3 days, then drop the Lovenox Thanks for asking 4DATE: 03/15/2024 PROCEDURES: 1. Atrial fibrillation ablation with pulmonary vein isolation. 2. Ablation of discrete mechanism of arrhythmia, which was a cavotricuspid isthmus dependent atrialflutter. 3. Use of the CARTO 3D mapping system. 4. CS-LA pacing and recording. 5. Intracardiac echocardiography. 6. Transseptal left heart catheterization through intact septum. Social History Social History Type Response Smoking Status Never smoker; Tobacc o user in household: No entered on: 02/16/14 Sex Female Sex Representation Female (finding) Patient Care team information Care Team Personnel Name: Siena Horn Position: [facility] Outreach Member Role: Lifetime Consulting Physician Name: Miriam Og RN Position: [facility] RN Member Role: Primary Care Nurse Name: Letitia Godoy Position: [facility] Associate Professional Member Role: Lifetime Consulting Provider Address: [address] [place] [address] [facility] [address] Telecom: Name: Sherie Azar Position: [facility] RN Supv Member Role: Primary Care Nurse Name: Kristin Ventura RN Position: [facility] SN RN Member Role: Primary Care Nurse Name: Gisel Fraire RN Position: [facility] AMB Nurse Member Role: Primary Care Nurse Name: Jenifer Holm RN Position: [facility] RN Member Role: Primary Care Nurse Name: Kayla Augustine RN Position: [facility] RN Member Role: Primary Care Nurse Name: Lynnette Renee LPN Position: [facility] RN Member Role: Primary Care Nurse Name: Karly Soares Position: [facility] Outreach Member Role: Lifetime Consulting Physician Name: Kayleigh Sheikh RN Position: [facility] RN Member Role: Primary Care Nurse Name: Bridgette Greenfield RN Position: [facility] RN Member Role: Primary Care Nurse Name: Randal Perkins MD Position: [facility] Physician - Primary Care Member Role: PCP Address: [address] [place] [address] [facility] [place], [place] [address] Telecom: Name: Norma Herrera RN Position: [facility] RN Member Role: Primary Care Nurse Name: Lucie Lennon Position: [facility] Associate Professional Member Role: Lifetime Consulting Provider Address: [address] [facility] [address] [facility] [address] Telecom: Name: Kaylee Rg LPN Position: [facility] RN Member Role: Primary Care Nurse Name: Iraida Zavala RN Position: [facility] ED RN W/OE and Tasks Member Role: Primary Care Nurse Name: Braxton Shore MD Position: [facility] Renal MD Member Role: Lifetime Consulting Physician Address: [facility] [address] [facility] [address] Telecom: Name: Gloria Boateng RN Position: [facility] RN Supv Member Role: Primary Care Nurse Name: Neena White RN Position: [facility] RN Member Role: Lifetime Consulting Physician Name: Vilma Kim RN Position: [facility] RN Member Role: Primary Care Nurse Name: Ingrid Antonio NP Position: [facility] Associate Professional Member Role: Lifetime Consulting Provider Address: [address] [facility] [place] [address]- Telecom: Name: Sonido Davila MD Position: [facility] Renal MD Member Role: Lifetime Consulting Physician Address: [address] [facility] [place] [address]- [place] Telecom: Name: Hollie Sanchez RN Position: [facility] RN Member Role: Primary Care Nurse Name: Michele Taylor DO Position: [facility] Renal MD Member Role: Lifetime Consulting Physician Address: [address] [facility] [place] [address]- [place] Telecom: Name: Kalen Perry RN Position: [facility] RN Member Role: Primary Care Nurse Name: Evelin Mcnamara RN Position: S RN Member Role: Primary Care Nurse Name: Gregory Parks III, RN Position: [facility] RN Member Role: Primary Care Nurse Name: Swathi Coleman RN Position: [facility] RN Member Role: Primary Care Nurse Name: Bro Greenberg RN Position: [facility] RN Member Role: Primary Care Nurse Name: Robel Ewing RN Position: [facility] RN Member Role: Primary Care Nurse Name: Lidia Gee RN Position: [facility] RN Member Role: Primary Care Nurse Name: Juvencio Osborne MD Position: [facility] Outreach Member Role: Lifetime Consulting Physician Address: [address] [facility] [address] Telecom: Name: Elza Brown RN Position: [facility] RN Member Role: Primary Care Nurse Name: Mundo Moss RN Position: [facility] RN Member Role: Primary Care Nurse Name: Mark Cristina RN Position: [facility] OB RN Member Role: Primary Care Nurse Name: Shruthi Johnson RN Position: [facility] RN Member Role: Primary Care Nurse Name: Milo Wilson MD Position: [facility] Renal MD Member Role: Lifetime Consulting Physician Address: [address] [facility] [address] [facility] [address] Telecom: Name: June Melo RN Position: [facility] RN Member Role: Primary Care Nurse Name: Sarita Aviles RN Position: [facility] RN Member Role: Primary Care Nurse Name: Katty Augustin RN Position: [facility] RN Member Role: Primary Care Nurse Name: Bonilla Aguilar RN Position: S RN Member Role: Primary Care Nurse Care Team Related Persons Name: PATTI KAPLAN Name: BRADLEY KAPLAN Insurance Providers Guarantor name: TRINY KAPLAN Health Plan Information #: 1 Payer: [facility] [employer] PPO Payer Identifier: [id number] Member Number: [id number] Group Number: [id number] Subscriber Identifier: NA Relationship to Subscriber: self Coverage Type: Medicare PPO Coverage Verification Date: NA Telecom: NA Address: NA
--- OUTSIDE RECORDS SUMMARY | 2025-11-08 23:59 | XMS_ITS | Continuity of Care Document ---
Author Organization [facility] Address [address] [place] [address]- Care Team Providers Care Carbon Cutter Name Role Phone Randal Perkins MD [id number] Date(s): [facility]/01/25 - 11/08/25 [facility] [address] [place], [place] [address] Attending Physician: Randal Perkins MD Encounter Type: Office Visit Allergies, Adverse Reactions, Alerts Substance Criticality Severity Reaction Reaction Severity Status cephalexin Diarrhea Active Flagyl Rash Active Bactrim WBC count problem Ac tive ceFAZolin Diarrhea Active metroNIDAZOLE Eruption Active Valcyte WBC count issue Acti ve Immunizations Given and Recorded Vaccine Date Status [...] Virus Vaccine (oldterm) 9 12/06/06 Given SARS-CoV-2(COVID-19)mRNA-LNP vac([id number]) 09/17/23 Recorded pneumococcal 20-valent conjugate vaccine 05/04/23 Given [id number] 12y+ bivalent booster vax 09/25/22 Recorded tetanus-diphtheria toxoids (Td) 04/30/22 Given tetanus-diphtheria toxoids (Td) 10 03/29/05 Given SARS-CoV-2 mRNA ([id number]) vax 04/06/22 Recorded SARS-CoV-2 (COVID-19) mRNA BNT-162b2 [...] Poly (PPV23) (oldterm) 11/11/04 Given 1Result Comment: [id number] 2Result Comment: [id number] given w/out incident okd by 3Result Comment: [...] mass bio labs 11Result Comment: Done at [facility] 12Admin Note: given w/o incident Medications amoxicillin 500 mg oral capsule 4 capsule = 2,000 mg, By Mouth, Once, take 2 grams (4 tablets) once 1 hour prior to dental procedure, # 4 capsule, 0 Refills, Soft Stop, 01/08/25 4:01:00 PM EST, [facility]/pharmacy #[id number], Partial fill upon patient request if [...] 9:40:00 AM EDT, Route to Pharmacy Electronically, [facility], Partial fill uponpatient request [...] 0 Refills, Maintenance, 04/04/25 9:02:00 AM EDT, [facility] STORE [id number], 157.48,cm, 03/26/25 10:07:00 EDT, Height, 50.5, kg, 03/26/25 9:25:00 EDT, Dry Weight Start Date: 04/04/25 Status: Ordered Medication Dispense Status: Completed Quantity: 239.4 Unit: g Total Allowed Fills: 1 Fills Dispensed: 0 Eliquis 2.5 mg oral tablet 1 tablet, By Mouth, 2 times a day, # 180 tablet, 3 Refills, Maintenance, 10/23/25 12:45:00 PM EST, [facility]/pharmacy #[id number], 158, cm, 10/16/25 7:29:00 EST, Height, [...] 0 Refills, Maintenance, 09/27/25 1:00:00 PM EDT, [facility]/pharmacy #[id number], Partial fill upon patient request if [...] 11:39:00 AM EDT, [facility], Partial fill upon patientrequest if the [...] Refills, Maintenance, 04/17/25 2:19:00 PM EDT, Tablet, [facility]/pharmacy #[id number], Partial fill upon patient request if [...] 3 Refills, Maintenance, 09/20/25 12:28:00 PM EDT, [facility] STORE [id number], 157.48, cm, 08/31/25 10:08:00 EDT, Height, 53.4, [...] 03/24/08 Active Vitamin B12 deficiency Confirmed Active 1[facility] 2done 3From: Katherine SEARS(Hem/Onc), Felix Head To: [...] Transseptal left heart catheterization through intact septum. Vital Signs Most recent to oldest [Reference Range]: 1 Height 157.48 cm (11/01/25 9:25 AM) Weight 51.9 kg (11/01/25 9:25 AM) Oxygen Saturation [94-100 %] 97 % (11/01/25 9:25 AM) Pulse Rate [55-90 bpm] 86 bpm (11/01/25 9:25 AM) Body Mass Index [18.5-24.99 kg/m2] 20.93 kg/m2 (11/01/25 9:25 AM) Blood Pressure [90-138/55-84 mm Hg] 150/ 76mm Hg *H* (11/01/25 9:25 AM) Mode of Delivery (Oxygen) Room air (11/01/25 9:25 AM) Blood pressure sites Arm, left (11/01/25 9:25 AM) Dry Weight 51.9 kg (11/01/25 9:25 AM) Weight Obtained Via Standing scale (11/01/25 9:25 AM) Social History Social History Type Response Smoking Status Never smoker; Tobacc o user in household: No entered on: 02/16/14 Sex Female Sex Representation Female (finding) Note * Margret Goodman: PERFORM Event Display: Patient Education/Instruction Authored Date: [id number] Ambulatory Adult Visit Summary [facility] [address] [place] [address] Name: TRINY KAPLAN : 1945?? Visit: 11/01/2025 09:13?? Ambulatory Visit Instructions ?? Your Care Team Primary Care Provider Randal Perkins MD? This Visit Provider Randal Perkins MD Your Diagnosis Bacteremia due to Streptococcus Mutans group Heart failure with reduced ejection fraction ?? grade 3 diastolic ??dysfunction ??and moderate ??MR Vitals Signs Pulse Rate: 86 bpm Height: 157.48 cm Systolic Blood Pressure:??150 mm Hg??High Weight: 51.9 kg Diastolic Blood Pressure: 76 mm Hg Body Mass Index: 20.93 kg/m2 Oxygen Saturation: 97 % Body surface area: 1.51 What to do next Scheduled Follow-Up Appointments Wednesday 10:00 AM EST ?? Type: MRI Cervical Spine W+W/O Contrast Where: [facility] [address] [place] [address]- Status: Pending 2024 10:00 AM EST ?? Type: Inpatient Follow Up With: Jorje VALADEZ, Chayito Trejo Where: [facility] [address] [place] [address]- Status: Pending Wednesday2025 11:40 AM EST ?? Type: Return With: Randal Perkins MD Where: [facility] [address] [place] [address]- Status: Pending Future Orders Complete Urinalysis/Reflex Culture (Urinalysis Complete/Reflex Culture) - Urine Clean Catch, Once, BILL TO PT S INSURANC, *Est. 03/20/25 +/- 2 days, Within 3 Days?? Protein/Creatinine Ratio Urine - Urine, Once, BILL TO PT'S INSURANCE, *Est. 03/20/25 +/- 2 days, Single or Recurring Future Order?? Medications The list below reflects the information in our records and provided by you today along with any changes made during this visit. Please continue your medications until treatment is completed or stopped by your provider. If this is different from the information you have or there are other questions,please contact the prescribing provider. What How Much When Instructions Unchanged Amoxicillin (amoxicillin 500 mg oral capsule) 4 capsule Oral Once Special Instructions: take 2 grams (4 tablets) once 1 hour prior to dental procedure Ordering Physician: Bryan Astudillo MD ?? Unchanged apixaban (Eliquis 2.5 mg oral tablet) 1 tab(s) Oral Twice a day Ordering Physician: Randal Perkins MD Unchanged belatacept See instructions Special Instructions: 5 mg/ kg IV Infusion every 4 weeks ?? Unchanged Calcium Carbonate (calcium carbonate 500 mg (200 mg elemental calcium) oral tablet, chewable) 2 tab(s) Chew 3 times a day Ordering Physician: Bryan Astudillo MD Unchanged Ceftriaxone 2 gram Intravenous Infusion Daily Unchanged Ceftriaxone (ceftriaxone 2 gm injectable powder for injection) 2 gram IV Piggyback Every 24 hours Ordering Physician: Sanjay Vargas MD Unchanged Cholestyramine (cholestyramine 4 g/ 5.7 g oral powder for reconstitution) See instructions Special Instructions: MIX 1 SCOOP IN 2 TO 6 OZ OF WATER, NON-CARBONATED DRINK SOUPOR PULPY FRUIT. STIR WELL AND DRINK. Ordering Physician: Bryan Astudillo MD ?? Unchanged Durable Medical Equipment (Insulin Syringe, BD Ultra-Fine 1 cc 31 G x 8 mm (5/ 16in)) Seeinstructions Special Instructions: To inject Procrit once a week Ordering Physician: Bryan Astudillo MD ?? Unchanged Levothyroxine (Synthroid 0.05 mg oral tablet) 1 tab(s) Oral Wednesday, Wednesday and Wednesday Duration: 90 Days Ordering Physician: Randal Perkins MD Unchanged Levothyroxine (Synthroid 0.2 mg oral tablet) 1 tab(s) Oral Daily Ordering Physician: Randal Perkins MD Unchanged Lidocaine Topical (lidocaine 4% patch) Topically Twice a day Unchanged Loperamide (Imodium Capsule) 2 Milligram Oral Daily Unchanged Lorazepam (LORazepam 0.5 mg oral tablet) 1 tab(s) Oral Daily Special Instructions: prn ??anxiety Ordering Physician: Randal Perkins MD ?? Unchanged Metoprolol (metoprolol 100 mg oral tablet, extended release) 1 tab(s) Oral Daily Duration: 90 Days Ordering Physician: Lauri Alcaraz MD Unchanged PredniSONE (predniSONE 5 mg oral tablet) 1 tab(s) Oral Daily Ordering Physician: Tamiko Astudillo MDuth Unchanged silver topical (SilvaSorb) 1 applicator Topically Every other day Ordering Physician: Sanjay Vargas MD Unchanged torsemide (torsemide 5 mg oral tablet) 2 tab(s) Oral Daily Ordering Physician: Randal Perkins MD Unchanged Vitamin A Daily ?? What How Much When Comments Stop Taking Cyclobenzaprine 5 Milligram Oral 3 times a day as needed for Pain , Moderate Stop Taking Oxycodone 5 Milligram Oral Every 6 hours as needed for Pain , Severe Medications and Immunizations Administered Medications Given During Visit No medications given during this visit.?? Allergies (NKA means No Known Allergies) Bactrim??WBC count problem Flagyl??Rash Valcyte??WBC count issue ceFAZolin??Diarrhea cephalexin??Diarrhea metroNIDAZOLE??Eruption Common Emergency Awareness Tips IS IT A STROKE? Act FAST and Check for these signs: FACE Does the face look uneven? ARM Does one arm drift down? SPEECH Does their speech sound strange? TIME Call at any sign of stroke ?? Heart Attack Signs Chest discomfort: Most heart attacks involve discomfort in the center of the chest and lasts more than a few minutes, or goes away and comes back. It can feel like uncomfortable pressure, squeezing, fullness or pain. Discomfort in upper body: Symptoms can include pain or discomfort in one or both arms, back, neck, jaw or stomach. Shortness of breath: With or without discomfort. Other signs: Breaking out in a cold sweat, nausea, or lightheaded. Remember, MINUTES DO MATTER. If you experience any of these heart attack warning signs, call to get immediate medical attention! ?? Smoking can increase your chances of developing chronic health problems and can cause harmful effects to other family members in your house. If you smoke, you are strongly encouraged to quit. Please call [employer] Link at [phone] or [phone] (6179) or log in to [email or web address] for referrals to smoking cessation programs. ?? The National Suicide Prevention Hotline is available 21/06 if you or someone you know needs to find a reason to keep living. By calling 4-191-899-[employer] (2026) you'll be connected to a skilled, trained counselor at a crisis center in your area. [employer] Portal You can view and manage your care through the patient portal or by using a health care chris of your choosing. [employer] is a website that allows you to securely view your medical information including your hospital discharge summary, office visit summaries, medications and follow-up visits. You can also request appointments, renew medications, and request access to your medical information using a health care chris of your choosing, or just ask a question. You can enroll at [email or web address] or register during your next office visit. [facility], in keeping with [facility] guidance, no longer requires face masks for staff, patientsor visitors in most situations. Similiar to time spent indoors at other locations, there is the chance that you were exposed to repiratory viruses during your time with us (such as flu or COVID-19). If you develop symptoms concerning for a viral respiratory infection, please seek testing (and treatment if indicated) from your medical provider or home test kit. ?? Disclaimer: The information provided is of a general nature and is intended to be used in conjunction with the recommendations and advice of your health care practitioner. Every effort has been made to ensure that the information provided is accurate and complete at the time it is provided to you however, as your needs change, or, as new information becomes available, different or additional instructions may be required. ?? If you have questions, please consult with your primary care provider or pharmacist, as appropriate. This information is not intended to serve as substitution for assessment and evaluation by a qualified health care provider. If you do not have a primary care provider, you may find a [facility] provider by calling [facility] [employer] Link at [phone]. Patient Care team information Care Team Personnel Name: Siena Horn Position: [facility] Outreach Member Role: Lifetime Consulting Physician Name: Miriam Og RN Position: S RN Member Role: Primary Care Nurse Name: Letitia Godoy Position: [facility] Associate Professional Member Role: Lifetime Consulting Provider Address: [address] [place] [address] [address] [facility] [address] Telecom: Name: Sherie Azar Position: [facility] RN Supv Member Role: Primary Care Nurse Name: Kristin Ventura RN Position: [facility] SN RN Member Role: Primary Care Nurse Name: Gisel Fraire RN Position: [facility] AMB Nurse Member Role: Primary Care Nurse Name: Jenifer Holm RN Position: [facility] RN Member Role: Primary Care Nurse Name: Kayla Augustine RN Position: [facility] RN Member Role: Primary Care Nurse Name: Lynnette Renee LPN Position: [facility] RN Member Role: Primary Care Nurse Name: Karly Soares Position: [facility] Outreach Member Role: Lifetime Consulting Physician Name: Kayleigh Sheikh RN Position: [facility] RN Member Role: Primary Care Nurse Name: Bridgette Greenfield RN Position: [facility] RN Member Role: Primary Care Nurse Name: Randal Perkins MD Position: [facility] Physician - Primary Care Member Role: PCP Address: [address] [place] [address] [facility] [address] Telecom: Name: Norma Herrera RN Position: [facility] RN Member Role: Primary Care Nurse Name: Lucie Lennon Position: [facility] Associate Professional Member Role: Lifetime Consulting Provider Address: [address] [place], [place] [id number] [facility] [address] Telecom: Name: Kaylee Rg LPN Position: [facility] RN Member Role: Primary Care Nurse Name: Iraida Zavala RN Position: [facility] ED RN W/OE and Tasks Member Role: Primary Care Nurse Name: Braxton Shore MD Position: [facility] Renal MD Member Role: Lifetime Consulting Physician Address: [address] [place], [place] [id number] [facility] [address] Telecom: Name: Gloria Boateng RN Position: [facility] RN Supv Member Role: Primary Care Nurse Name: Neena White RN Position: [facility] RN Member Role: Lifetime Consulting Physician Name: Vilma Kim RN Position: [facility] RN Member Role: Primary Care Nurse Name: Ingrid Antonio NP Position: [facility] Associate Professional Member Role: Lifetime Consulting Provider Address: [address] [place] [address] [address] [facility] [place] [address]- Telecom: Name: Sonido Davila MD Position: [facility] Renal MD Member Role: Lifetime Consulting Physician Address: [address] [facility] [place] [place] [address]- Telecom: Name: Hollie Sanchez RN Position: S RN Member Role: Primary Care Nurse Name: Michele Taylor DO Position: [facility] Renal MD Member Role: Lifetime Consulting Physician Address: [address] [facility] [place] [address]- Telecom: Name: Orlando RNKalen Position: [facility] RN Member Role: Primary Care Nurse Name: Evelin Mcnamara RN Position: [facility] RN Member Role: Primary Care Nurse Name: Gregory Parks III, RN Position: [facility] RN Member Role: Primary Care Nurse Name: Swathi Coleman RN Position: [facility] RN Member Role: Primary Care Nurse Name: Bro Greenberg RN Position: [facility] RN Member Role: Primary Care Nurse Name: Robel Ewing RN Position: [facility] RN Member Role: Primary Care Nurse Name: Lidia Gee RN Position: [facility] RN Member Role: Primary Care Nurse Name: Juvencio Osborne MD Position: [facility] Outreach Member Role: Lifetime Consulting Physician Address: [address] [facility] [address] Telecom: Name: Elza Brown RN Position: [facility] RN Member Role: Primary Care Nurse Name: Mundo Moss RN Position: [facility] RN Member Role: Primary Care Nurse Name: Mark Cristina RN Position: [facility] OB RN Member Role: Primary Care Nurse Name: Shruthi Johnson RN Position: [facility] RN Member Role: Primary Care Nurse Name: Milo Wilson MD Position: [facility] Renal MD Member Role: Lifetime Consulting Physician Address: [address] [facility] [address] Telecom: Name: June Melo RN Position: [facility] RN Member Role: Primary Care Nurse Name: Sarita Aviles RN Position: [facility] RN Member Role: Primary Care Nurse Name: Katty Augustin RN Position: [facility] RN Member Role: Primary Care Nurse Name: Bonilla Aguilar RN Position: [facility] RN Member Role: Primary Care Nurse Care Team Related Persons Name: PATTI KAPLAN Name: BRADLEY KAPLAN Insurance Providers Guarantor name: TRINY KAPLAN [facility] Plan Information #: 1 Payer: [facility] [employer] PPO Payer Identifier: NA Member Number: [id number] Group Number: [id number] Subscriber Identifier: [id number] Relationship to Subscriber: self Coverage Type: Medicare PPO Coverage Verification Date: NA Telecom: NA Address: NA
--- OUTSIDE RECORDS SUMMARY | 2025-11-14 13:18 | XMS_ITS | Encounter Summary ---
Author Organization [facility] Address [address] [place] [address] Drive [address] [place] [address] Phone Care Team Providers Care Client Experience Manager Name Role Phone Randal Perkins MD Primary Care Provider Encounter Details Date Type Department Care Team (Late st Contact Info) Description 01/21/2022 Procedure Pass [facility] [address] [place] [address] Social History Tobacco Use Types Packs/Day Years [...] documented as of this encounter Care Teams Client Experience Manager Relationship Specialty Start Date End Date Randal Perkins MD [address] [address] PCP - General 05/29/14 documented as of this encounter Additional Source Comments The information contained in this document represents components of the legal health record. It is not the complete legal health record.[facility]
--- OUTSIDE RECORDS SUMMARY | 2025-11-14 13:18 | XMS_ITS | Clinical Summary ---
Author Organization [facility] Address [address] [facility] [address] [place] [address] Phone Care Team Providers Care Director Of Maternity Services Name Role Phone Benny Akbar MD Primary [...] Department Care Team Description 10/11/2025 Orders Only [facility] [address] [place] [address] Crow Rojas MD 09/30/[address] [facility] [address] [place] [address] [place] [address] Dayanna Katty Spencer, CHILD WELFARE CONSULTANT from Last 3 Months Immunizations Immunization Administration [...] 07/2024, 05/25/2024, Additional history exists COVID-19 VACCINE ( season) 2025 09/17/2023, 09/25/2022, 04/06/2022, Additional [...] EDT) SODIUM 139 133 - 146 mmol/L [facility] POTASSIUM 4.4 3.3 - 5.1 mmol/L [facility] CHLORIDE 96 96 - 108 mmol/L [facility] CO2 22 21 - 35 mmol/L [facility] BUN 54(H) 6 - 19 mg/dL [facility] CREATININE 4.90(H) 0.5 - 1.5 mg/dL [facility] GLUCOSE 103(H) 70 - 99 mg/dL [facility] ALBUMIN 2.7(L) 3.9 - 4.8 g/dL [facility] TOTAL PROTEIN 5.3(L) 6.5 - 8.0 g/dL [facility] CALCIUM 7.4(L) 8.4 - 10.3 mg/dL [facility] ALKALINE PHOSPHATASE 236(H) 39 - 117 U/L [facility] TOTAL BILIRUBIN 0.4 0.0 - 1.2 mg/dL [facility] AST 24 0 - 37 U/L [facility] ALT 19 0 - 40 U/L [facility] GLOBULIN 2.6 1 - 4.8 g/dL [facility] EGFR 9(L) >59 mL/min/1.7 3m2 [facility] Comment:Estimated glomerular filtration rate calculated using the CKD-EPI refit equation. ANION GAP 25(H) 10 - 20 mmol/L [facility] Blood 07/18/2024 1:12 PM EDT 07/18/2024 1:23 PM EDT María Aguayo [facility] LAB BLOOD BKR ORDERABLES Final Result Performing Organization Address City/[facility]/ZIP Co de Phone Number [facility] [address] [place] [address] * Hepatitis C antibody, qualitative ([facility], F, DFCI, NWAS Only) (11/13/2015 11:54 AM EST) HCV Negative Negative [facility] 11/13/2015 11:5 4 AM EST 11/13/2015 12:03 PM EST Crwo Rojas MD LAB BLOOD BKR ORDERABLES Fi nal Result Performing Organization Address City/[facility]/ZIP Co de Phone Number [facility] [address] [place] [address] * ENDOSCOPY, COLON (01/26/2014 10:21 AM EST) 01/26/2014 10:2 1 AM EST Narrative 02/25/2014 11:31 AM EDT Report Number: [id number] Report Status: Signed Type: Colonoscopy Date: 01/26/2014 [...] - 01/26/2014 10:21 AM EST Report Number: [id number] Report Status:Signed Type: Colonoscopy Date: 01/26/2014 10:21 850 Gastroenterology Patient Name: Carline Lee Procedure Date: 01/26/2014 10:21 AM Date of : 1945 Age: 68 Room: 12 Gender: Female Note Status: Finalized Attending MD: CROW RJOAS MD Procedure: Colonoscopy Indications: Personal history of [...] Provider Not In Sys GI PROCEDURE ORDE RABLES Final Result from Last 3 Months or Most Recently Relevant to Health Maintenance Insurance [facility] MEDICARE REPLACEMENT [facility] MEDICARE REPLACEMENT [facility] MEDICARE REPLACEMENT [facility] MEDICARE REPLACEMENT [facility] MEDICARE REPLACEMENT [facility] MEDICARE REPLACEMENT [facility] MEDICARE REPLACEMENT [place] [id number] [facility] MEDICARE REPLACEMENT [place] [id number] [facility] MEDICARE REPLACEMENT Care Teams Director Of Maternity Services Relationship Specialty Start Date End Date Benny Akbar MD [address] [address] PCP - General 05/29/14 Additional Source Comments The information contained in this document represents components of the legal health record. It is not the complete legal health record.[facility]
--- OUTSIDE RECORDS SUMMARY | 2025-11-14 13:18 | XMS_ITS | Encounter Summary ---
Author Organization [employer] [facility] Address [address] [place] [address] Phone Care Team Providers Care Valet Runner Name Role Phone Randal Perkins MD Primary Care Provider Encounter Details Date Type Department Care Team (Late st Contact Info) Description 08/16/2024 Telephone [facility] [address] [place] [address] Crow Alberto MD [address] [facility] [address] [place] [address] [email or web address] Social History Tobacco Use Types [...] documented as of this encounter Care Teams Valet Runner Relationship Specialty Start Date End Date Randal Perkins MD [facility] [address] PCP - General 05/29/14 documented as of this encounter Additional Source Comments The information contained in this document represents components of the legal health record. It is not the complete legal health record.[facility]
--- OUTSIDE RECORDS SUMMARY | 2025-11-14 13:19 | XMS_ITS | Encounter Summary ---
Author Organization [employer] [facility] Address [address] [place] [address] Phone Care Team Providers Care Planting Material Carrier Name Role Phone Randal Perkins MD Primary Care Provider Encounter Details Date Type Department Care Team (Late st Contact Info) Description 05/12/2024 Telephone [facility] Gastroenterology [facility] [address] [place] [address] Crow Alberto MD 850 [facility] [address] [place] [address] [email or web address] Social History Tobacco Use Types [...] documented as of this encounter Care Teams Planting Material Carrier Relationship Specialty Start Date End Date Randal Perkins MD [address] [address] PCP - General 05/29/14 documented as of this encounter Additional Source Comments The information contained in this document represents components of the legal health record. It is not the complete legal health record.[facility]
--- OUTSIDE RECORDS SUMMARY | 2025-11-14 13:19 | XMS_ITS | Patient Health Record ---
Author Organization [facility] Address [address] [facility] [address] [place] [address] Care Team Providers Care Tongsman Name Role Phone Randal Perkins Primary Care Provider RICARDO Rojas Unavailable [phone] Allergies Allergen (clinical drug ingredient) Drug/Non Drug [...] Problem Acquired hammer toe of right foot ([id number] 105) Hammer toe of right foot (M20.41) Active confirmed Plan Of Treatment No Information Insurance Providers Payer Name Payer Address Payer Phone Subscriber Number Group Number Insured Name Patient Relationship to Insured Coverage Start Date Coverage End Date [employer] Medicare Adv-[id number] [address] [address] [place] [phone] [id number] Carline Lee Self - patient is the insured [...] + COVID 01/2023 COVID vaccinated X 3 (Ushi) Surgical History Surgery Date(Month/Year) right lumpectomy 1998 cholecystectomy 1981 1975 total thyroidectomy- negative cancer 201 8 Hospitalization History Reason Date(Month/Year) Afib 08/2023 Factor V- DVT Crohn's disease 2006 Crohn's disease 1986 cholecystectomy 1982 (boy) 1975
--- OUTSIDE RECORDS SUMMARY | 2025-11-14 13:19 | XMS_ITS | Encounter Summary ---
Author Organization [facility] Address [address] [place] [address] Phone Care Team Providers Care Hearing Aid Technician Name Role Phone Randal Perkins MD Primary Care Provider Encounter Details Date Type Department Care Team (Late st Contact Info) Description 09/18/2020 Procedure Pass [facility] Search Engineer [facility] [address] [place] [address] Social History Tobacco Use Types Packs/Day Years [...] documented as of this encounter Care Teams Hearing Aid Technician Relationship Specialty Start Date End Date Randal Perkins MD [address] [address] PCP - General 05/29/14 documented as of this encounter Additional Source Comments The information contained in this document represents components of the legal health record. It is not the complete legal health record.[facility]
--- OUTSIDE RECORDS SUMMARY | 2025-11-14 13:19 | XMS_ITS | Encounter Summary ---
Author Organization [facility] Address [address] [place] [address] Phone Care Team Providers Care Protein Chemist Name Role Phone Randal Perkins MD Primary Care Provider Encounter Details Date Type Department Care Team (Late st Contact Info) Description 08/13/2023 Telephone [facility] Gastroenterology [facility] [address] [place] [address] Crow Alberto MD [address] [facility] [address] [place] [address] [email or web address] Social History Tobacco Use Types [...] documented as of this encounter Care Teams Protein Chemist Relationship Specialty Start Date End Date Randal Perkins MD [address] [address] PCP - General 05/29/14 documented as of this encounter Additional Source Comments The information contained in this document represents components of the legal health record. It is not the complete legal health record.[facility]
--- OUTSIDE RECORDS SUMMARY | 2025-11-14 13:19 | XMS_ITS | Encounter Summary ---
Author Organization [employer] [facility] Address [address] [place] [address] Phone Care Team Providers Care Toll Collector Supervisor Name Role Phone Randal Perkins MD Primary Care Provider Encounter Details Date Type Department Care Team (Late st Contact Info) Description 05/10/2024 Telephone [facility] Gastroenterology [facility] [address] [place] [address] Crow Alberto MD 850 [facility] [address] [place] [address] [email or web address] Social History Tobacco Use Types [...] documented as of this encounter Care Teams Toll Collector Supervisor Relationship Specialty Start Date End Date Randal Perkins MD [address] [address] PCP - General 05/29/14 documented as of this encounter Additional Source Comments The information contained in this document represents components of the legal health record. It is not the complete legal health record.[facility]
--- OUTSIDE RECORDS SUMMARY | 2025-11-14 13:19 | XMS_ITS | Encounter Summary ---
Author Organization [employer] [facility] Address [address] [place] [address] Phone Care Team Providers Care Rn Infusion Name Role Phone Randal Perkins MD Primary Care Provider Encounter Details Date Type Department Care Team (Late st Contact Info) Description 07/14/2024 Telephone [facility] Gastroenterology [facility] [address] [place] [address] Crow Alberto MD 850 [facility] [address] [place] [address] [email or web address] Social History Tobacco Use Types Packs/Day [...] documented as of this encounter Care Teams Rn Infusion Relationship Specialty Start Date End Date Randal Perkins MD [facility] [address] PCP - General 05/29/14 documented as of this encounter Additional Source Comments The information contained in this document represents components of the legal health record. It is not the complete legal health record.[facility]
--- OUTSIDE RECORDS SUMMARY | 2025-11-14 13:19 | XMS_ITS | Encounter Summary ---
Author Organization [facility] Address [address] [place] [address] Phone Care Team Providers Care Computer Hardware Technician Name Role Phone Randal Perkins MD Primary Care Provider Encounter Details Date Type Department Care Team (Late st Contact Info) Description 05/26/2024 Procedure Pass [facility] [address] [place] [address] Social History Tobacco Use Types Packs/Day Years [...] documented as of this encounter Care Teams Computer Hardware Technician Relationship Specialty Start Date End Date Randal Perkins MD [address] [address] PCP - General 05/29/14 documented as of this encounter Additional Source Comments The information contained in this document represents components of the legal health record. It is not the complete legal health record.[facility]
--- OUTSIDE RECORDS SUMMARY | 2025-11-14 13:20 | XMS_ITS | Encounter Summary ---
Author Organization [facility] Address [address] [place] [address] [address] [place] [address] Phone Care Team Providers Care Director Of Operations Support Name Role Phone Randal Perkins MD Primary Care Provider Encounter Details Date Type Department Care Team (Late st Contact Info) Description 06/10/2022 Procedure Pass [facility] Solar Sales Specialist [facility] [address] [place] [address] Social History Tobacco Use Types Packs/Day Years [...] documented as of this encounter Care Teams Director Of Operations Support Relationship Specialty Start Date End Date Randal Perkins MD [address] [address] PCP - General 05/29/14 documented as of this encounter Additional Source Comments The information contained in this document represents components of the legal health record. It is not the complete legal health record.[facility]
--- OUTSIDE RECORDS SUMMARY | 2025-11-14 13:20 | XMS_ITS | Encounter Summary ---
Author Organization [facility] Address [address] [place] [address] [place] [address] Phone Care Team Providers Care Torque Tester Name Role Phone Randal Perkins MD Primary Care Provider Reason for Referral * MRI/CAT Scan - Closed Specialty Diagnoses / Procedures Referred By Ariel sales Referred To Contact Procedures CT Abdomen/Pelvis Outside (No Interpretation) Crow Alberto MD Phone: tel: fax: mailto:[email or web address] Referral ID Status Reason Start Date Expiration Date Visits Re quested Visits Authorized [id number] Closed 11/30/2017 11/30/2018 1 1 Encounter Details Date Type Department Care Team (Late st Contact Info) Description 11/30/2017 Transcribe Orders [facility] [address] [place] [address] Katia Silvestre [address] [place] [address] [email or web address] Social History Tobacco Use Types Packs/Day [...] documented as of this encounter Care Teams Torque Tester Relationship Specialty Start Date End Date Randal Perkins MD [facility] [address] PCP - General 05/29/14 documented as of this encounter Additional Source Comments The information contained in this document represents components of the legal health record. It is not the complete legal health record.[facility]
--- OUTSIDE RECORDS SUMMARY | 2025-11-14 13:20 | XMS_ITS | Clinical Summary ---
Author Organization [facility] Address [address] [place] [address] Care Team Providers Care Nozzleman Name Role Phone Rodrigo Perkins MD Primary Care Provider [phone] Encounters Date Type Department Care Team Description 09/13/2025 11:00 PM EDT Lab [facility] Trans[facility] & [facility] [address] [facility] [address] [place] [phone] System, Provider Not In Kidney replaced [...] Result from Last 3 Months Insurance [facility] MEDICARE [facility] MEDICARE Care Teams Nozzleman Relationship Specialty Start Date End Date Rodrigo Perkins MD [address] [place] [address] PCP - General Internal Medicine 08/29/25
--- OUTSIDE RECORDS SUMMARY | 2025-11-14 13:20 | XMS_ITS | Encounter Summary ---
Author Organization [facility] Address [address] [place] [address] Phone Care Team Providers Care Psych Coordinator Name Role Phone Randal Perkins MD Primary Care Provider Encounter Details Date Type Department Care Team (Late st Contact Info) Description 06/28/2019 Procedure Pass [facility] Audio/Visual Manager [facility] [address] [place] [address] Social History Tobacco Use Types Packs/Day Years [...] documented as of this encounter Care Teams Psych Coordinator Relationship Specialty Start Date End Date Randal Perkins MD [address] [address] PCP - General 05/29/14 documented as of this encounter Additional Source Comments The information contained in this document represents components of the legal health record. It is not the complete legal health record.[facility]
--- OUTSIDE RECORDS SUMMARY | 2025-11-14 13:20 | XMS_ITS | Encounter Summary ---
Author Organization [facility] Address [address] [place] [address] Care Team Providers Care Piggyback Clerk Name Role Phone System, Provider Not In Primary Care Provider Un available Rodrigo Perkins MD Primary Care Provider + [phone] Rodrigo Perkins MD Primary Care Provider + [phone] Encounter Details Date Type Department Care Team (Late st Contact Info) Description 07/19/2023 Scanned Document [facility] Transplant [facility] & [facility] [address] [facility] [address] [place] [phone] Provider, External, [address] [place] [address] Social History Tobacco Use Types Packs/Day Years [...] on filedocumented in this encounter Care Teams Piggyback Clerk Relationship Specialty Start Date End Date System, Provider Not In PCP - General 05/23/25 05/23/25 Rodrigo Perkins MD [address] [place] [address] PCP - General Internal Medicine 04/29/25 05/22/25 Rodrigo Perkins MD [address] [place] [address] PCP - General Internal Medicine 08/29/25 documented as of this encounter
--- OUTSIDE RECORDS SUMMARY | 2025-11-14 13:20 | XMS_ITS | Encounter Summary ---
Author Organization [facility] Address [address] [place] [address] [place] [address] Phone Care Team Providers Care Tool Crib Clerk Name Role Phone Randal Perkins MD Primary Care Provider Encounter Details Date Type Department Care Team (Late st Contact Info) Description 11/28/2018 EpicOnHand Encounter [facility] Gastro[facility]ology [facility] [address] [place] [address] Tomasz Walden NP [address] [address] [email or web address] Social History Tobacco Use Types Packs/Day [...] documented as of this encounter Care Teams Tool Crib Clerk Relationship Specialty Start Date End Date Randal Perkins MD NPI: [id number] [place] [address] PCP - General 05/29/14 documented as of this encounter Additional Source Comments The information contained in this document represents components of the legal health record. It is not the complete legal health record.[facility]
--- OUTSIDE RECORDS SUMMARY | 2025-11-14 13:20 | XMS_ITS | Encounter Summary ---
Author Organization [facility] Address [address] [place] [address] Phone Care Team Providers Care High School Chemistry Teacher Name Role Phone Randal Perkins MD Primary Care Provider Encounter Details Date Type Department Care Team (Late st Contact Info) Description 11/30/2017 Procedure Pass [facility] [address] [place] [address] Social History Tobacco Use Types Packs/Day Years [...] documented as of this encounter Care Teams High School Chemistry Teacher Relationship Specialty Start Date End Date Randal Perkins MD [facility] [address] [address] PCP - General 05/29/14 documented as of this encounter Additional Source Comments The information contained in this document represents components of the legal health record. It is not the complete legal health record.[facility]
--- OUTSIDE RECORDS SUMMARY | 2025-11-14 13:20 | XMS_ITS | Clinical Summary ---
Author Organization [address] [place] [address] [place] [phone] Phone Care Team Providers Care Cutlery Grinder Name Role Phone Randal Perkins MD Primary Care Provider [phone] Allergies Active Allergy Reactions Criticality Noted Date [...] her at her request. 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 HFrEF (heart failure with reduced ejection fract ion) 09/25/2025 Overview (09/25/2025): echocardiogram on 06/26/2025 that [...] is going to be scheduled with her senior asp net developer to have a kidney biopsy in which [...] recipient 09/25/2025 Hyperthyroidism 09/25/2025 Paroxysmal atrial fibrillation 09/25/2025 Overview (09/25/2025): s/p ablation with Dr [...] Encounters Date Type Department Care Team Description 11/02/2025 Telephone [facility] Cardiology [facility] [address] [address] [facility] [address] [place] [phone] Kamille Shetty MD 09/25/2025 1:40 PM EDT Office Visit [facility] Cardiology [facility] [address] [address] [facility] [address] [place] [phone] Michele Malagon NP Renal transplant recipient (Primary Dx); SOB (shortness of breath); HFrEF (heart failure with reduced ejection fraction) (CMS/HCC V24, CMS/HCC V28); Paroxysmal atrial fibrillation (CMS/HCC V24, CMS/HCC V28); Primary hypertension 09/25/2025 Telephone [facility] [address] [facility] [address] [place] [phone] Michele Malagon NP 09/20/2025 Telephone [facility] [address] [place] [address] Kamille Shetty MD from Last 3 Months [...] DX:H/O cesa rean section Chronic renal impairment DX:Dough Scaler And Mixer bernabe renal impairment Crohn's disease (CMS/HCC V24, [...] 09/25/2025 1:24 PM EDT Plan of Treatment Upcoming Encounters Date Type Department Care Team (Late st Contact Info) Description 11/16/2025 8:10 AM EST Office Visit [facility] [address] [place] [address] Michele Malagon NP [address] [place] [address] [place] [address] Health Maintenance Due Date Last Done Comments Hepatitis A Vaccines (1 of 2 - Risk 2-dose series) 1966 Hepatitis B Vaccines (1 of 3 - Risk 3-dose series) 2007 RSV Immunization Adult Patients (1 - 1-dose 75+ series) 2022 Falls Risk Assessment 11/08/2022 Medicare Annual Wellness Visit 11/08/2022 Osteoporosis Screening (Bone Density Screening) 11/08/2022 Social Influencers of Health Screening 11/08/2022 Depression Screening 11/29/2024 Hypertension/CHF/CAD Annual BMP Blood Test 07/18/2025 07/18/2024, 06/06/2024, 05/25/2024, Additional history exists COVID-19 Vaccine (2024- season) 2025 09/17/2023, 09/25/2022, 04/06/2022, Additional history exists Cholesterol Screening (Lipid Panel) [...] topic Insurance [employer] MEDICARE Care Teams Cutlery Grinder Relationship Specialty Start Date End Date Randal Perkins MD [address] [place] [phone] PCP - General Internal Medicine 07/07/22
--- OUTSIDE RECORDS SUMMARY | 2025-11-14 13:20 | XMS_ITS | Encounter Summary ---
Author Organization [facility] Address [address] [place] [address] [place] [address] Phone Care Team Providers Care Ribbon Lap Machine Tender Name Role Phone Randal Perkins MD Primary Care Provider Encounter Details Date Type Department Care Team (Late st Contact Info) Description 08/24/2019 Procedure Pass [facility] MR Imaging, [place] [address] [place] [address] Social History Tobacco Use Types Packs/Day Years [...] documented as of this encounter Care Teams Ribbon Lap Machine Tender Relationship Specialty Start Date End Date Randal Perkins MD [address] [address] PCP - General 05/29/14 documented as of this encounter Additional Source Comments The information contained in this document represents components of the legal health record. It is not the complete legal health record.[facility]
[2025-11-14 14:26] LABS: MANUAL DIFF FLAG NO
[2025-11-14 14:31] LABS: Hematocrit 38.7 % (37.0-47.0); Hemoglobin 11.8 g/dl (12.0-16.0); Imm Gran Abs Auto 0.14 X10*3/uL (0.00-0.03); Imm Gran Pct Auto 2.0 % (0.0-0.4); Lymphocytes Absolute Auto 0.6 X10*3/uL (1.2-4.9); Mean Corpuscular HGB Conc 30.5 g/dl (31.0-35.0); Mean Corpuscular Hemoglobin 32.2 pg (27.0-33.0); Mean Corpuscular Volume 105.7 fL (80.0-98.0); NRBC Abs Auto 0.040 X10*3/uL (0.0-0.012); NRBC Pct Auto 0.6 /100WBC (0.0-0.2); Platelet Count 185 X10*3/uL (160-400); Red Blood Count 3.66 X10*6/uL (4.20-5.50); White Blood Count 7.1 X10*3/uL (4.8-10.8)
[2025-11-14 15:00] LABS: Albumin Level 4.0 g/dL (3.5-5.0); Alkaline Phosphatase 145 U/L (39-117); Anion Gap 14 (12-20); Aspartate Amino Transferase 56 U/L (5-31); Blood Urea Nitrogen 19 mg/dL (9-16); Calcium 8.8 mg/dL (8.4-10.2); Carbon Dioxide 19 mmol/L (22-29); Chloride 114 mmol/L (96-108); Estimated Glomerular Filt Rate 35; Potassium 3.3 mmol/L (3.3-5.1); Sodium 144 mmol/L (135-145); Total Protein 7.1 g/dL (6.5-8.0)
[2025-11-14 17:19] LABS: Alanine Aminotransferase 43 U/L (0-31)
== END 2025-11-14 09:41 | disposition home or self-care (01) ==
LOC: HO.HVNA 09:40
PROVIDERS: PCP Internal Medicine; Visit Provider Student in an Organized Health Care Education/Training Program
DX: R78.81 Bacteremia (principal); R65.10 Systemic inflammatory response syndrome (SIRS) of non-infectious origin without acute organ dysfunction; B95.4 Other streptococcus as the cause of diseases classified elsewhere
CPT/HCPCS: 36415; 80053; 85025; 85652; 86140